=== PATIENT | female | born 1935 | race Caucasian/White ===

== ENCOUNTER → 2020-11-11 14:37 | Outpatient (CLI) | payer MEDICARE, BC, SELFPAY ==
--- NOTE | ~2020-11-11 | XR_ITS ---
EXAMINATION: XR shoulder LT min 2V DATE: 11/11/2020 14:57 INDICATION: Left shoulder pain. TECHNIQUE: 4 views of left shoulder were obtained. COMPARISON: None. FINDINGS: Bone alignment is normal. No fracture. There is mild osteoarthritis of glenohumeral joint a nd severe osteoarthritis of acromioclavicular joint. IMPRESSION: 1. Polyarticular osteoarthritis. Reviewed, dictated and finalized at location A.
== END ==
PROVIDERS: PCP Surgery; Visit Provider Physician Assistant
DX: M19.012 Primary osteoarthritis, left shoulder (principal)
CPT/HCPCS: 73030

== ENCOUNTER → 2022-01-30 09:13 | Outpatient (CLI) | payer MEDICARE, BC, SELFPAY ==
--- NOTE | ~2022-01-30 | CT_ITS ---
EXAMINATION: CT IAC/mastoids BI wo con DATE: 01/30/2022 09:30 INDICATION: Sudden left-sided hearing loss. TECHNIQUE: Computed tomography (CT) of the temporal bones was performed without intravenous contrast. Automated exposure control and iterative reconstruction technique were employed. The dose-length pro duct was 187.61 mGy-cm. COMPARISON: Neck CTA 06/24/2009 FINDINGS: There are likely changes of ocular lens replacement surgeries. RIGHT TEMPORAL BONE: The internal auditory canal, cochlea, vestibule, semicircular canals, vestibular aqueduct, jugular bu lb, carotid canal, facial nerve course, Prussak space, scutum, tympanic membrane, and external audito ry canal are normal. There is a trace right mastoid effusion. LEFT TEMPORAL BONE: The internal auditory canal, cochlea, vestibule, semicircular canals, vestibular aqueduct, carotid ca nal, jugular bulb, facial nerve course, ossicles, Prussak space, and scutum are normal. There is a sm all left mastoid effusion. There is a large volume of material in left external auditory canal with e rosions of bone. There is dehiscence of the anterior wall of the external auditory canal with communi cation with the temporomandibular joint. There is asymmetric severe osteoarthritis of left temporoman dibular joint. IMPRESSION: 1. Large volume of material in left external auditory canal with erosions of bone, consistent with ot itis externa. 2. 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 Reviewed, dictated and finalized at location A. NEYMAN CARPENTER IMPRESSION: 1. Large volume of material in left external auditory canal with erosions of cira ne, consistent with otitis externa. 2. 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
== END ==
PROVIDERS: PCP Family Medicine; Visit Provider Otolaryngology
DX: H91.23 Sudden idiopathic hearing loss, bilateral (principal)
CPT/HCPCS: 70480

== ENCOUNTER 2022-03-11 17:42 | Emergency (ER) | payer MEDICARE, BC, SELFPAY ==
--- NOTE | ~2022-03-11 | XR_ITS ---
EXAMINATION: XR chest 2V DATE: 03/11/2022 20:29 INDICATION: Back pain TECHNIQUE: PA and lateral views of the chest are obtained. COMPARISON: None available FINDINGS: The lungs are free of acute opacities. No pleural effusion or pneumothorax. The cardiomedia stinal silhouette is normal. There is moderate thoracic spondylosis. There is an age-indeterminate co mpression fracture of the T9 vertebral body with 25% loss of anterior vertebral body height. Deformit y of the left breast is consistent with history of lumpectomy. IMPRESSION: 1. No acute cardiopulmonary abnormality. Reviewed, dictated and finalized at location F. BLENDER
--- NOTE | ~2022-03-11 | CT_ITS ---
EXAMINATION: CT cervical spine wo con DATE: 03/11/2022 20:25 INDICATION: Neck pain TECHNIQUE: Computed tomography (CT) of the cervical spine was performed without intravenous contrast. The dose-length product (DLP) was 144.00 mGy-cm. Automated exposure control and iterative reconstruc tion technique were employed. COMPARISON: 06/24/2009 FINDINGS: There is chronic fusion of the C4 and C5 vertebral bodies. There is also chronic and severe loss of intervertebral disc space height at C3-4 and C5-6 and C6-7. The odontoid is intact. No fract ure is identified. There are 2 mm of chronic retrolisthesis of C5 on C6 and C6 on C7. There is multil evel severe facet and uncovertebral joint osteoarthritis. There are 15 degrees cervical levoscoliosis . There is mild central canal stenosis at C2-3, C3-4, and C6-7 and moderate central canal stenosis at C5-6. There is multinodular goiter of the left thyroid. IMPRESSION: 1. Severe cervical spondylosis without acute findings or significant interval change. Reviewed, dictated and finalized at location F. TESTER IMPRESSION: 1. Severe cervical spondylosis without acute findings or significant interval c kory.
[2022-03-11 18:41] VITALS: BP 143/60; PULSE 101; RESP 16; TEMP 36.2; O2SAT 98
--- NOTE | 2022-03-11 19:56 | ED.GENADULT ---
HPI - General Adult General Chief complaint: Unspecified Stated complaint: neck pain Time Seen by Provider: 03/11/22 19:55 Source: patient and family Mode of arrival: ambulatory History of Present Illness HPI narrative: 86 years old white female came from home by private car complaining of intermittent right-sided neck pain, discomfort, sometimes radiating to the supraclavicular area. Pain worse with certain position mainly if she lay down on the left side of her body. Pain gets better with certain position and when she turn her head to certain direction. She denies any fever, chills, nausea, vomiting, chest pain, shortness of breath, headache. Patient denies any recent new physical activities or trauma also denies any tingling, numbness, weakness of the upper extremities. Currently patient denying any symptoms. Related Data Home Medications Medication Instructions Recorded Confirmed aspirin 81 mg tablet,delayed 81 mg PO DAILY 02/13/19 02/17/22 release cholecalciferol (vitamin D3) 50 2,000 unit PO DAILY 02/13/19 02/17/22 mcg (2,000 unit) tablet potassium 99 mg tablet mg PO 02/13/19 02/17/22 ferrous sulfate 325 mg (65 mg 325 mg PO DAILY 08/31/19 02/17/22 iron) tablet Allergies Allergy/AdvReac Type Severity Reaction Status Date / Time hydrochlorothiazide Allergy Unknown unk Verified 03/11/22 17:45 pravastatin Allergy Unknown unk Verified 03/11/22 17:45 tamoxifen Allergy Unknown unk Verified 03/11/22 17:45 Review of Systems Review of Systems: All systems reviewed & are unremarkable except as noted in HPI and below PMFSH Past Medical History Medical History Diverticulosis H/O TIA (transient ischemic attack) and stroke History of left breast cancer Internal hemorrhoids Family History Family History Father Family history of coronary artery disease Social History Social History Smoking packs per day: 0.75 Smoking cigarettes per day: 15.0 Years smoked: 60 Smoking pack-years: 45.00 Smoking status: Current every day smoker Tobacco type: cigarettes Second hand tobacco smoke exposure: Yes Alcohol intake: never Substance use: never Gender identity (if verbalized by the patient): Female Sexual Orientation (if Verbalized by the Patient): Straight or Heterosexual Exam Narrative: General appearance: Well-developed, well-nourished Skin: Normal color Head: Normocephalic, nontraumatic Eyes: Clear conjunctiva ENT: Oropharynx normal, ears normal, nose normal Neck: Supple, nontender, no bruises, no swelling, no mass, no lymphadenopathy, no localized tenderness, good range of motion of the neck and right shoulder. Chest and respiratory: Airway patent, no respiratory distress, no accessory muscle use Heart: Regular rate/rhythm Abdomen: Soft, nontender, no organomegaly, quiet bowel sounds Vascular: Normal peripheral pulses, normal capillary refill. Musculoskeletal: Normal range of motion, nontender back Neurologic: Alert and oriented ?3, DERMATOLOGY PHYSICIAN ASSISTANT is normal as tested, no gross motor deficit Course Course Emergency Course: Musculoskeletal pain is my concern. Vital Signs Vital signs: Vital Signs Temperature 36.2 C L 03/11/22 18:41 Pulse Rate 101 H 03/11/22 18:41 Respiratory Rate 16 03/11/22 18:41 Blood Pressure 143/60 H 03/11/22 18:41 Pulse Oximetry 98 03/11/22 18:41 Oxygen Delivery Room Air 03/11/22 18:41 Temperature 36.2 C L 03/11/22 18:41 Pulse Rate 101 H 03/11/22 18:41 Respiratory Rate 16 03/11/22 18:41 Blood Pressure 143/60 H 1
[2022-03-11 21:29] VITALS: PULSE 103; RESP 16; O2SAT 97
== END 2022-03-11 21:30 | disposition home or self-care (01) ==
PROVIDERS: Emergency Provider Emergency Medicine; PCP Family Medicine
DX: M54.2 Cervicalgia (principal); Z86.73 Personal history of transient ischemic attack (TIA), and cerebral infarction without residual deficits; Z85.3 Personal history of malignant neoplasm of breast; F17.210 Nicotine dependence, cigarettes, uncomplicated; Z79.82 Long term (current) use of aspirin; M47.812 Spondylosis without myelopathy or radiculopathy, cervical region
CPT/HCPCS: 71046; 72125; 99284

== ENCOUNTER 2022-03-24 12:23 | Inpatient (IN) | payer MEDICARE, BC, SELFPAY ==
[2022-03-24] VITALS (64 sets, daily range): BP systolic 82–153; BP diastolic 42–97; PULSE 52–126; RESP 14–36; TEMP 36.4–36.9; O2SAT 90–100; BMI 21.5
--- NOTE | ~2022-03-24 | NM_ITS ---
EXAMINATION: NM terra stress w perfusion DATE: 03/26/2022 15:02 INDICATION: Non-ST elevation myocardial infarction. TECHNIQUE: Rest images were obtained following intravenous administration of 9 mCi Tc99m tetrofosmin (Myoview). The patient was infused intravenously with Lexiscan (regadenoson). Then, 28.3 mCi Tc99m te trofosmin (Myoview) was administered intravenously, and stress images were obtained. Data was reconst ructed into short axis and horizontal and vertical long axis SPECT images. Gated SPECT images were al so obtained. COMPARISON: CT abdomen and pelvis 06/14/2017 FINDINGS: There is a small, mild, reversible perfusion defect involving apical inferior and mid infer oseptal segments of left ventricle, consistent with ischemia. There is a small, severe, fixed perfusi on defect involving mid to basal inferior segments of left ventricle, consistent with infarct. There is no segmental wall motion abnormality. Left ventricular ejection fraction measures 60%. IMPRESSION: 1. Small area of mild ischemia involving apical inferior and mid inferoseptal segments of left ventri neris. 2. Small area of severe infarct involving mid to basal inferior segments of left ventricle. 3. Normal left ventricular ejection fraction measuring 60%. Reviewed, dictated and finalized at location A. OR MECHANICAL DEVELOPMENT ENGINEER IMPRESSION: 1. Small area of mild ischemia involving apical inferior and mid inferoseptal s egments of left ventricle. 2. Small area of severe infarct involving mid to basal inferior segments of lef t ventricle. 3. Normal left ventricular ejection fraction measuring 60%.
--- NOTE | ~2022-03-24 | CT_ITS ---
EXAMINATION: CTA brain carotid DATE: 03/25/2022 09:38 INDICATION: Syncope. Carotid bruit. TECHNIQUE: Computed tomographic angiography (CTA) of the head was performed without and with 100 mL O mnipaque-350 intravenous contrast. CTA of the neck was performed with intravenous contrast. Automated exposure control and iterative reconstruction technique were employed. The dose-length product was 1 714.76 mGy-cm. Maximum intensity projection and volume rendered 3D-reconstructions were created by james goode technologist on a separate workstation. COMPARISON: CTA neck 06/24/2009 FINDINGS: HEAD CTA: There are scattered areas of low attenuation in the cerebral white matter. There is no intr acranial hemorrhage, acute infarction, or abnormal intracranial mass lesion. The ventricles are emily l in size. There are likely changes of ocular lens replacement surgeries. There is mild mucosal thick ening in the ethmoid sinuses. There is a trace left mastoid effusion. The vertebral arteries are codo minant. There is focal moderate stenosis of distal right vertebral artery. There is no significant st enosis of basilar artery or the posterior cerebral arteries. There is no significant stenosis of the intracranial internal carotid arteries. There is a 6 x 3 mm saccular aneurysm of right supraclinoid i nternal carotid artery. There is moderate stenosis of intracranial left internal carotid artery. Ther e is no significant stenosis of the anterior or middle cerebral arteries. Anterior communicating jessica ry is normal. The posterior communicating arteries are normal. NECK CTA: There are small bilateral pleural effusions. There is mild emphysema. There is mild scarrin g at the lung apices. There are nodules in the thyroid measuring up to 11 mm, likely not clinically s ignificant. There are no pathologically enlarged lymph nodes. There is focal moderate stenosis of pro ximal right vertebral artery. There is plaque in the proximal internal carotid arteries. There is 65% stenosis of the proximal right internal carotid artery relative to normal distal artery lumen diamet er (NASCET criteria). There is 37% stenosis of the proximal left internal carotid artery relative to normal distal artery lumen diameter. There is mild stenosis of proximal left subclavian artery. There is severe cervical spondylosis. There is developmental anterior and posterior fusion at C4-C5. IMPRESSION: 1. Extensive nonspecific cerebral white matter disease, which likely represents chronic small vessel ischemic disease. 2. Focal moderate stenosis of proximal and distal right vertebral artery. Moderate stenosis of intrac ranial left internal carotid artery. 3. 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 4. 65% stenosis of the proximal right internal carotid artery relative to normal distal artery lumen diameter (NASCET criteria). 5. 37% stenosis of the proximal left internal carotid artery relative to normal distal artery lumen d iameter. 6. Mild emphysema. 7. Small pleural effusions. Reviewed, dictated and finalized at location A. GAGE COORDINATOR IMPRESSION: 1. Extensive nonspecific cerebral white matter disease, which likely represents chronic small vessel ischemic disease. 2. Focal moderate stenosis of proximal and distal right vertebral artery. Moder ate stenosis of intracranial left internal carotid artery. 3. 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 4. 65% stenosis of the proximal right internal carotid artery relative to emily l distal artery lumen diameter (NASCET criteria). 5. 37% stenosis of the proximal left internal carotid artery relative to normal distal artery lumen diameter. 6. Mild emphysema. 7. Small pleural effusions.
--- NOTE | 2022-03-24 12:27 | ECG_ITS ---
Measurements Intervals [place] Rate: 83 P: 51 WV: 132 QRS: 65 QRSD: 102 T: -46 QT: 417 QTc: 492 Interpretive Statements SINUS RHYTHM INCOMPLETE RIGHT BUNDLE BRANCH BLOCK ST-T WAVE ABNORMALITY IN ANT/INF LEADS- CONSIDER ISCHEMIA BASELINE WANDER- II, III ABNORMAL ECG NO PREVIOUS ECG AVAILABLE FOR COMPARISON Electronically Signed On 03-24-2022 12:51:54 COSMETIC ACCOUNT COORDINATOR by Leon Ventura D.O.
[2022-03-24 12:41] LABS: Glucose Point of Care 154 mg/dl (65-105)
--- NOTE | 2022-03-24 12:47 | PC.NURSE ---
Dr. Dugan at bedside to assess pt.
[2022-03-24] MEDS: SODIUM CHLORIDE 0.9% IV 1,000 ML 999 ML IV CONT (12:49)
--- NOTE | 2022-03-24 12:52 | ED.GENADULT ---
HPI - General Adult General Chief complaint: Syncope Stated complaint: seizure Time Seen by Provider: 03/24/22 12:26 History of Present Illness HPI narrative: 86-year-old female presented to the emergency department for evaluation of multiple syncopal episodes at her primary care physician's office. Patient was seen in the emergency [place] on 03/11 for what was thought to be arthritic pain. Patient was having follow-up with her primary care physician office today and in the office had 2 syncopal episodes. Patient states she has been eating and drinking well and has been taking her medications as directed. Patient states that she has been having issues with constipation. While she was at the office after being weighed she bent over to pick something up and had a syncopal episode lasting about 10 seconds. Primary care office states that she had no postictal episode and the episode only lasted just a few seconds. Later the patient was in the room and stated that she felt like she was going to pass out and had a subsequent second syncopal episode with associated hypotension. Upon arrival to the emergency room by EMS patient denies any complaints at this time other than some lower abdominal cramping. At the doctor's office patient did have a single episode of nausea and vomiting but denies any current nausea. I did discuss case with be practitioner who saw the patient at the primary care physician's office. Related Data Home Medications Medication Instructions Recorded Confirmed aspirin 81 mg tablet,delayed 324 mg PO DAILY 02/13/19 03/24/22 release cholecalciferol (vitamin D3) 50 2,000 unit PO DAILY 02/13/19 03/24/22 mcg (2,000 unit) tablet potassium 99 mg tablet 200 mg PO DAILY 02/13/19 03/24/22 ferrous sulfate 325 mg (65 mg 325 mg PO DAILY 08/31/19 03/24/22 iron) tablet quinapril 40 mg tablet 40 mg PO DAILY 03/24/22 03/24/22 Allergies Allergy/AdvReac Type Severity Reaction Status Date / Time hydrochlorothiazide Allergy Unknown unk Verified 03/24/22 11:42 pravastatin Allergy Unknown unk Verified 03/24/22 11:42 tamoxifen Allergy Unknown unk Verified 03/24/22 11:42 Review of Systems Review of Systems: CONSTITUTIONAL: Near syncope EYES: Denies visual changes, redness, or discharge. ENT: Denies rhinorrhea, congestion, sore throat, or otalgia. CARDIOVASCULAR: Denies chest pain, palpitations, or edema. RESPIRATORY: Denies cough or dyspnea. GASTROINTESTINAL: Denies abdominal pain, nausea, vomiting, or diarrhea. GENITOURINARY: Denies dysuria or hematuria. SKIN: Denies rash or itching. MUSCULOSKELETAL: Denies back pain, joint pain, or myalgia. NEUROLOGIC: Near syncope COUNTS INCLUDE 234 BEDS AT THE [facility] Past Medical History Medical History Diverticulosis H/O TIA (transient ischemic attack) and stroke History of left breast cancer Internal hemorrhoids Family History Family History (Updated 03/24/22 @ 20:24 by Ronit Kirkpatrick RN) Father Family history of coronary artery disease Other Alcohol abuse Social History Social History Smoking packs per day: 0.75 Smoking cigarettes per day: 15.0 Years smoked: 60 Smoking pack-years: 45.00 Smoking status: Current every day smoker Tobacco type: cigarettes Second hand tobacco smoke exposure: Yes Alcohol intake: never Substance use: never Lack of Transportation: No Lack of Food: Never True Current Housing: I Have Housing Concerned About Future Housing: No Difficulty Paying Gas/Electric Bills: No Difficulty Paying for Meds: No Currently Unemployed: No Education: Decline to Answer Difficulty w/ Childcare or Family Care: No Gender identity (if verbalized by the patient): Female Sexual Orientation (if Verbalized by the Patient): Straight or Heterosexual Spiritual care concerns: No Exam Narrative: APPEARANCE: Well appearing, no pain, no distress, well-no
[2022-03-24 12:53] LABS: Basophils Absolute Auto 0.1 K/mm3 (0.0-0.1); Basophils Percent Auto 1.1 % (0.2-1.2); Eosinophils Absolute Auto 0.1 K/mm3 (0-0.3); Eosinophils Percent Auto 0.9 % (0-4.4); Hematocrit 27.5 % (37.0-47.0); Hemoglobin 8.7 g/dL (12.0-15.0); Immature Granulocyte Absolute 0.06 K/mm3 (0.00-0.031); Immature Granulocyte Percent A 0.6 % (0-0.5); Lymphocytes Percent Auto 13.6 % (18.3-44.2); Mean Corpuscular HGB Conc 31.6 g/dl (32-36); Mean Corpuscular Hemoglobin 30.1 pg (26-34); Mean Corpuscular Volume 95.2 fl (80-100); Mean Platelet Volume 8.8 fl (7.4-10.4); Monocytes Absolute Auto 0.5 K/mm3 (0.1-0.6); Monocytes Percent Auto 5.3 % (2.6-8.5); Neutrophils Absolute Auto 8.1 K/mm3 (1.3-6.7); Neutrophils Percent Auto 78.5 % (45.5-73.1); Platelet Count Result 339 k/mm3 (150-375); Red Blood Count 2.89 M/mm3 (4.2-5.4); Red Cell Distribution Width 13.8 % (11.5-14.5); White Blood Count 10.3 K/mm3 (4.5-10.0)
[2022-03-24 13:00] LABS: Alanine Aminotransferase 14 U/L (6-35); Albumin Level 3.2 g/dL (3.5-5.1); Alkaline Phosphatase 76 U/L (38-126); Anion Gap 4 mmol/L (8-16); Aspartate Amino Transferase 22 U/L (14-36); Bilirubin,Total 0.7 mg/dL (0.2-1.3); Blood Urea Nitrogen 11 mg/dL (7-17); Carbon Dioxide 25 mmol/L (22-30); Chloride 106 mmol/L (98-107); Estimated CRCL calculation 32 ml/min; Estimated Glomerular Filt Rate 53; Glucose 171 mg/dL (65-110); Magnesium 1.9 mg/dL (1.6-2.3); Potassium 3.6 mmol/L (3.4-5.0); Sodium 135 mmol/L (137-145)
[2022-03-24 13:04] LABS: INR 1.2; Partial Thromboplastin Time 21.4 SECONDS (22.3-36.8); Prothrombin Time 14.7 Seconds (11.1-14.7)
--- NOTE | 2022-03-24 13:35 | ECG_ITS ---
Measurements Intervals [place] Rate: 95 P: [place]: 0 QRS: 78 QRSD: 106 T: -62 QT: 403 QTc: 507 Interpretive Statements SINUS OR ECTOPIC ATRIAL RHYTHM FREQUENT ATRIAL PREMATURE COMPLEXES ST-T WAVE ABNORMALITY IN ANTEROLAT/INF LEADS- CONSIDER ISCHCEMIA BASELINE ARTIFACT- I, II, III, AVR ABNORMAL ECG COMPARED TO ECG 03/24/2022 12:34:36 SINUS OR ECTOPIC ATRIAL RHYTHM NOW PRESENT Electronically Signed On 03-24-2022 14:23:52 VENETIAN BLIND CLEANER by Leon Ventura D.O.
[2022-03-24] MEDS: SODIUM CHLORIDE 0.9% IV 1,000 ML 500 ML IV CONT (13:40)
[2022-03-24 14:05] LABS: Troponin I 0.023 ng/mL (0.000-0.034)
[2022-03-24 14:22] LABS: Influenza A QL RT-PCR Negative (Negative); Influenza B QL RT-PCR Negative (Negative); RSV RNA, RT-PCR Negative (Negative); SARS-CoV-2 RNA PCR Negative
[2022-03-24 15:26] LABS: Add Urine Microscopic? YES; Appearance Urine Clear (Clear); Bilirubin Urine Negative (Negative); Blood Urine 1+ (Negative); Color Urine Yellow (Yellow); Glucose Urine UA Negative (Negative); Ketones Urine Negative (Negative); Leukocyte Esterase Ur Negative LEU/UL (Negative); Nitrate Urine Negative (Negative); Protein Urine Negative (Negative); Urobilinogen Urine 0.2 mg/dL (<2.0)
[2022-03-24 15:33] LABS: Bacteria Urine Trace /hpf; Mucus Urine Rare /lpf; Squamous Epithelial Cell Urine Occasional /hpf (Few)
[2022-03-24 17:11] LABS: Troponin I 0.026 ng/mL (0.000-0.034)
--- NOTE | 2022-03-24 17:30 | PM.IMHP ---
H&P: HPI History of Present Illness Date/Time: 03/24/22 17:30 Chief Complaint: Syncopal episode. Narrative: This is a very pleasant 86-year-old female smoker with history of TIA, hypertension, anemia, paroxysmal atrial fibrillation, carotid stenosis, and breast cancer who presented to the emergency department via EMS from Dr. Nelson's office for evaluation after a syncopal episode. She was seen in the ED on 03/11/2022 with complaints of right neck and shoulder pain and imaging at that time showed severe cervical spondylosis without acute findings and she was given prescriptions for cyclobenzaprine and naproxen which seemed to help. She ran out of those prescriptions several days ago and her pain has returned. She had an appointment today with Dr. Nelson for follow-up and she reports feeling okay this morning. While sitting in the waiting room she once again developed a severe pain in the right shoulder radiating in to the right side of the neck (she has difficulties describing the pain) and shortly after the pain started she became sweaty, nauseated, and lightheaded. She was then called back and while getting weighed she started to feel very lightheaded and had a brief loss of consciousness followed by an episode of emesis. She had another similar episode while in the exam room and she was directed to the ED. At the time of my evaluation she feels just fine and is having no pain. She took her blood pressure medications this morning and denies that she could have accidentally taken extra. She denies recent change in medications and her weight has remained stable. She has not had any recent cold or flu symptoms. She also denies exertional chest pain, pleuritic pain, palpitations, and shortness of breath. She has not had any injuries or falls to suggest why she has been having neck and shoulder pain. She sees no pattern as to when her neck and shoulder hurt and denies that they are specifically related to movement or activity. She has not had any visual changes and denies jaw claudication. On arrival to the emergency department her blood pressure was in the 80s to 90 systolic on that has improved with IV fluids. Her heart rate since arrival has ranged anywhere between 52 and 117. Workup in the ED was significant for a drop in hemoglobin and hematocrit from baseline, and mild hyponatremia. EKG showed sinus rhythm with incomplete right bundle branch block and ST T-wave abnormalities in anterior inferior leads and her initial troponin was a bit elevated. She is being admitted in this setting for further evaluation. Review of Systems Review of Systems: Twelve systems were reviewed and are negative except for as per HPI. [facility]LY [facility] Past Medical History Medical History (Updated 03/25/22 @ 14:43 by Heavenly Bose PA-C) Diverticulosis Hyperlipidemia Hypertension Internal hemorrhoids Kidney stones Left breast cancer with T3 tumor, >5 cm in greatest dimension Paroxysmal atrial fibrillation Psoriasis Tobacco use Transient ischemic attack Surgical History Surgical History (Updated 03/25/22 @ 14:42 by Heavenly Bose PA-C) History of cataract extraction with lens replacement History of cystoscopy History of hysterectomy History of lumpectomy of left breast Family History Family History Father Family history of coronary artery disease Other Alcohol abuse Social History Social History (Updated 03/25/22 @ 14:43 by Heavenly Bose PA-C) Social History: , 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 Lives alone, one daughter. Surrogate medical decision maker: Esperanza Vargas, daughter. Code status: Full code. Smoking packs per day: 0.75 Smoking cigarettes per day: 15.0 Years smoked: 60 Smoking pack-years: 45.00 Smoking status: Current every day smoker Tobacco type: cigarettes Second hand tobacco smoke exposure: Yes Alcohol intake: never Substance use: never Lack of Transpo
--- NOTE | 2022-03-24 19:51 | ADMGEN ---
This patient, Ranjana Mg, was admitted to IMU Room 202-01 at 1951. Patient/family oriented to hospital policies and general routines including ID bracelet, bed and alarms, visiting hours, pain management, procedures, bathroom and other care routines, personal items, smoking policy, room service/diet, and visiting hours. Information on how to activate the Rapid Response Team has been discussed. Patient/Family are encouraged to report perceived risks to care and to ask questions if they do not understand what they are told or what they should do.
[2022-03-25] VITALS (17 sets, daily range): BP systolic 100–130; BP diastolic 52–72; PULSE 76–127; RESP 12–20; TEMP 36.4–37.1; O2SAT 93–98
--- NOTE | 2022-03-25 00:01 | ECHO_ITS ---
Patient Info Name: Ranjana Mg Age: 86 years : 1935 Gender: Female Ht: 64 in Wt: 125 lbs BSA: 1.60 m2 HR: 101 bpm BP: 128 / 56 mmHg Heart Rhythm: Sinus Rhythm, Tachycardia Technical Quality: Fair Exam Date: 03/25/2022 12:20 PM Exam Location: [facility] Pulmonary Exam Room: [facility] Patient Status: Inpatient Admit Date: 03/24/2022 Staff Ordering Physician: Heavenly Bose PA-C Slots Manager: Nicolasa Dunbar RDCS Attending Provider: Imelda Rodriguez DO Referring Physician: Juice GROSS; Exam Type: CA echo doppler color flow Study Info Indications - syncope Complete two-dimensional, color flow and Doppler transthoracic echocardiogram is performed. Summary 1. Complete two-dimensional, color flow and Doppler transthoracic echocardiogram is performed. 2. Left ventricular systolic function is normal, estimated at 50-55%. 3. The left ventricular diastolic function is grade I diastolic dysfunction. 4. Global longitudinal strain is abnormal at -12 %. 5. Right ventricular systolic function is normal. 6. Left atrial chamber dimension is mildly enlarged. 7. There is mild mitral valve regurgitation. 8. There is trace tricuspid valve regurgitation. Left Ventricle Left ventricular chamber dimension is normal. Left ventricular systolic function is normal, estimated at 50-55%. There is no increased left ventricular wall thickness. The left ventricular diastolic function is grade I diastolic dysfunction. Global longitudinal strain is abnormal at -12 %. Right Ventricle Right ventricular chamber dimension is normal. Right ventricular systolic function is normal. Left Atria Left atrial chamber dimension is mildly enlarged. Right Atria Right atrial chamber dimension is normal. Atrial Septum Intact interatrial septum visualized by color flow imaging. Aortic Valve The aortic valve is trileaflet. There is no aortic valve stenosis. There is no aortic valve regurgitation. Pulmonic Valve The pulmonic valve is not well visualized. Mitral Valve The mitral valve has thickened leaflets. There is mild mitral valve regurgitation. Tricuspid Valve The tricuspid valve leaflets are normal. There is trace tricuspid valve regurgitation. Pericardium/Pleural There is trivial pericardial effusion. Aorta The aortic root size at the sinus of Valsalva is normal. Left Ventricular Outflow Tract Name Value Normal LVOT 2D LVOT Diameter 2.0 cm LVOT Doppler LVOT Peak Gradient 4 mmHg LVOT Mean Gradient 2 mmHg LVOT VTI 20 cm LVOT VTI/AV VTI Ratio 1.0 LVOT Stroke Volume 64 ml LVOT CO 13.8 l/min LVOT CI 8.6 l/min/m2 Pulmonic Valve Name Value Normal PV Doppler
[2022-03-25 05:19] LABS: Hematocrit 26.8 % (37.0-47.0); Hemoglobin 8.3 g/dL (12.0-15.0); Mean Corpuscular Hemoglobin 29.3 pg (26-34); Mean Corpuscular Volume 94.7 fl (80-100); Mean Platelet Volume 8.8 fl (7.4-10.4); Platelet Count Result 267 k/mm3 (150-375); Red Blood Count 2.83 M/mm3 (4.2-5.4); Red Cell Distribution Width 13.8 % (11.5-14.5); White Blood Count 6.6 K/mm3 (4.5-10.0)
[2022-03-25 05:21] LABS: Alanine Aminotransferase 18 U/L (6-35); Albumin Level 2.8 g/dL (3.5-5.1); Alkaline Phosphatase 63 U/L (38-126); Anion Gap 2 mmol/L (8-16); Aspartate Amino Transferase 27 U/L (14-36); Bilirubin,Total 0.8 mg/dL (0.2-1.3); Blood Urea Nitrogen 9 mg/dL (7-17); Calcium 7.8 mg/dL (8.4-10.2); Carbon Dioxide 25 mmol/L (22-30); Chloride 111 mmol/L (98-107); Estimated CRCL calculation 45 ml/min; Estimated Glomerular Filt Rate > 60; Glucose 83 mg/dL (65-110); Magnesium 1.9 mg/dL (1.6-2.3); Potassium 3.8 mmol/L (3.4-5.0); Sodium 138 mmol/L (137-145)
[2022-03-25 05:43] LABS: Iron 35 ug/dL (37-170)
[2022-03-25 05:53] LABS: Percent Iron Saturation 13 % (20-50)
[2022-03-25] MEDS: FERROUS SULFATE 324 MG TABLET PO (09:10)
[2022-03-25] MEDS: CYCLOBENZAPRINE HCL 5 MG TABLET PO ×3 (09:10→17:06)
[2022-03-25] MEDS: ASPIRIN 81 MG ENTERIC TABLET 324 MG PO (09:10)
--- NOTE | 2022-03-25 09:15 | PM.CNCAR ---
Assessment and Plan Assessment and plan (1) Elevated troponin: Code(s): R77.8 - Other specified abnormalities of plasma proteins Status: Acute Assessment and Plan: Pt appears to have had a NSTEMI; unclear if this is an ACS event vs a trop elevation in the face of previously unrecognized CAD + physiologic stress (hypotension, PAF RVR, anemia). Anginal CP/arm pain began in the ER, not earlier in the day Does have (transient?) ischemic-appearing EKG changes Has been taking DAPT However now has an iron-def anemia, so not a great candidate for heparinization or cath/PCI which may obligate pt to DAPT. Will repeat EKG, check Echo and tx conservatively w/ BB, statins (but has some type of allergy to pravastatin), antiplatelet agents, SL TNG, unless pt has intractable sx. Eventual Lexiscan (2) Syncope: Code(s): R55 - Syncope and collapse Status: Acute Assessment and Plan: Syncope presumably 2nd low BP and orthostasis. Unclear if low BP was due to med or ischemia. Better after IV fluids Recheck orthostatics (3) Paroxysmal A-fib: Code(s): I48.0 - Paroxysmal atrial fibrillation Status: Acute Assessment and Plan: PAF W/ RVR noted. Tolerating it surprisingly well Add IV and po BB Consider AC or left atrial appendage occluder depending on anemia eval. (4) Anemia: Code(s): D64.9 - Anemia, unspecified Status: Acute Assessment and Plan: New iron-def anemia noted. Stool guaiacs History of Present Illness History of Present Illness Consult date/time: 03/25/22 09:15 Reason For Visit: Syncope,Paroxysmal A Fib,Chest Pain Narrative: Ranjana Mg is an 86 y.o. female whom I was asked to see at the request of Dr. Dugan for my advice and opinion regarding her chest pain, syncope and EKG changes, in consultation. Patient has a history of paroxysmal atrial fibrillation, hypertension, TIA, carotid stenosis, anemia and breast cancer. The pt had an ER visit for right posterior shoulder and neck pain 03/11/2022 and was given an Rx for naproxen and cyclobenzaprine which helped. She ran out and the pain came back; it hurts to move in certain ways. She was visiting DR. Nelson yesterday for this and felt lightheaded, sweaty and nauseated and had a syncopal episode lasting for 10 seconds. Later she felt like she was going to pass out and had a syncopal episode associated with hypotension. She was brought to the emergency room by EMS; her initial blood pressure was 78/42 with a pulse of 68. Her initial blood pressure in the emergency room was 98/47 and later 82/50 mmHg , and she was given IV fluids. Her heart rate was 82, NSR. Later she went into AFib and has been in AFib with heart rates ranging from 80-120s through the night. She was found to be orthostatic. In the ER she complained of some chest pain radiating to the arms and there was a question of EKG changes. The EKG was shown to Dr. Abreu and did not appear to be an acute STEMI. She has been doing well overnight. The pt is a very imprecise historian. She denies any h/o syncope or dizziness, and has been eating and drinking fine. She has been having some mild chest tightness off and on for a while w/o observable aggravating or relieving factors. The bilateral arm pain yesterday was new. She does not note any palps and wasn't aware of a dx of PAF. No melena or bleeding. Review of Systems Constitutional: Constitutional: Denies fever(s) Eyes: Eyes: Reports no additional eye complaints ENT: Denies epistaxis Cardiovascular: Cardiovascular: Reports chest pain (as per hx), Denies pedal edema, Reports lightheadedness (as per hx) and Denies dyspnea Respiratory: Respiratory: Denies chest congestion and Denies dyspnea Gastrointestinal: Gastrointestinal: Denies abdominal pain, Denies melena, Denies hematochezia, Reports nausea (yesterday) and Denies hematemesis Musculoskeletal: Musculoskeletal:
--- NOTE | 2022-03-25 12:36 | PM.IMPN ---
Progress Note: A&P Assessment and Plan (1) Syncope: Code(s): R55 - Syncope and collapse Status: Acute Assessment and Plan: Patient developed lightheadedness and brief loss of conscious well doctor's office follow-up on an episode of emesis. This was related to severe right shoulder/neck pain. She had low BP at this time that persisted when she was in the ED. She had a CTA of the head and neck which showed extensive nonspecific cerebral white matter disease but no acute infarct. She did moderate stenosis of the proximal and distal right vertebral artery as well as moderate stenosis of the intracranial left ICA. 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 No pathologically enlarged lymph nodes. Probabaly vasovagal associated with the pain and HoTN. Will follow on telemetry. (2) Hypotension: Code(s): I95.9 - Hypotension, unspecified Status: Acute Assessment and Plan: Patient has a history of hypertension is on quinapril and amlodipine at home. She had low blood pressure associated with the pain which could be vasovagal from pain. Consider also hypotension related to inferior ischemia. Blood pressure improved with IV fluids. Blood pressure has improved. Continue to monitor. (3) Pain in right shoulder: Code(s): M25.511 - Pain in right shoulder Status: Acute Assessment and Plan: Head and neck CTA as mentioned above cervical spine CT report was reviewed showing severe cervical spondylosis without acute findings or interval change from 2009. EKG showing significant ST T wave changes in anterior inferior leads. Troponin to 1.27. Consider anginal equivalent. Continue aspirin. Cardiology has been consulted. Echocardiogram has been ordered. Patient most likely will need ischemic evaluation prior to discharge. (4) Paroxysmal A-fib: Code(s): I48.0 - Paroxysmal atrial fibrillation Status: Acute Assessment and Plan: Patient developed atrial fibrillation overnight. TSH normal. Heart rate still elevated but improved. She has been started on Lopressor. Repeat EKG. Echo pending. [id number] = 7. Start anticoagulation if okay with cardiology. (5) Anemia: Code(s): D64.9 - Anemia, unspecified Status: Acute Assessment and Plan: Hemoglobin was normal in August. B12 level low end of normal so will replace. She is on ASA and Plavix. Iron studies noted and consistent with iron deficiency. She is on Naproxen prn so will add PPI treatment. Follow HH. Continue iron. Replace B12. (6) Tobacco use: Code(s): Z72.0 - Tobacco use Status: Acute Assessment and Plan: Patient was educated about the benefits of smoking cessation (7) Hyperglycemia: Code(s): R73.9 - Hyperglycemia, unspecified Status: Acute Assessment and Plan: Glucose 171 on admisison probably stress response. Repeat was normal. Last A1c 4.4 in August. (8) Neck pain on right side: Code(s): M54.2 - Cervicalgia Status: Acute Assessment and Plan: As above. Subjective Date/time seen: 03/25/22 12:36 Interval history: 86yo female here for right shoulder/neck and syncope. Feels well. No problems overnight. No CP. Still with right neck/shoulder pain that is constant. Nothing makes it better or worse. She seems unsure if worse with palpation to the area. Not worse with eating. No melana or hematochezia. No abd pain. Exam Narrative: AF 97.5 125/61 127 12 96% ra Gen - NARD Neck - no enlarged ant/post cervical LN. No enlarged axillary LN Chest - coarse expiratory rhonchi appreciated anteriorly. nml RR. CV - tachycardic, irregular. Tele showing AFib at times with 1 episode on NSVT x 6 beats Abd - Soft, NT/ND, Positive BS. No RUQ pain. Ext - No pedal edema. Psych - Nml mood and affect Skin - Warm and dry Objective Data Vital Signs Vital Signs: Vital Signs - 24 hr
[2022-03-25] MEDS: METOPROLOL TARTRATE 25 MG TABLET PO ×2 (12:38→21:22)
--- NOTE | 2022-03-25 13:07 | ECG_ITS ---
Measurements Intervals [place] Rate: 81 P: 53 IL: 173 QRS: 67 QRSD: 101 T: -16 QT: 436 QTc: 509 Interpretive Statements SINUS OR ECTOPIC ATRIAL RHYTHM BORDERLINE ST-T WAVE ABNORMALITY- ANTEROLAT/INF LEADS PROLONGED QT INTERVAL BASELINE WANDER- V1 ABNORMAL ECG COMPARED TO ECG 03/24/2022 13:45:48 [address]IN[address]M NOW PRESENT ST (T WAVE) DEVIATION IMPROVED PROLONGED QT INTERVAL NOW PRESENT Electronically Signed On 03-25-2022 14:47:22 [employer] by Leon Ventura D.O.
[2022-03-25] MEDS: PANTOPRAZOLE 40 MG TABLET PO ×2 (17:05→21:22)
[2022-03-25] MEDS: CYANOCOBALAMIN INJ 1,000 MCG/ML VIAL 1000 MCG IM (17:05)
[2022-03-26] VITALS (19 sets, daily range): BP systolic 97–138; BP diastolic 51–86; PULSE 73–97; RESP 16–20; TEMP 36.5–36.8; O2SAT 92–96
--- NOTE | 2022-03-26 00:42 | PC.NURSE ---
patient had iv tylenol to get every 6 hrs scheduled. patient refused the tylenol, she said she preferred the pills and was not having any pain at that time. called dr harris to change dose.
[2022-03-26 05:12] LABS: Basophils Absolute Auto 0.1 K/mm3 (0.0-0.1); Basophils Percent Auto 0.9 % (0.2-1.2); Eosinophils Absolute Auto 0.1 K/mm3 (0-0.3); Eosinophils Percent Auto 1.3 % (0-4.4); Hematocrit 28.4 % (37.0-47.0); Hemoglobin 8.8 g/dL (12.0-15.0); Immature Granulocyte Absolute 0.02 K/mm3 (0.00-0.031); Immature Granulocyte Percent A 0.2 % (0-0.5); Lymphocytes Absolute Auto 1.35 K/mm3 (0.9-3.2); Mean Corpuscular Hemoglobin 28.8 pg (26-34); Mean Corpuscular Volume 92.8 fl (80-100); Monocytes Absolute Auto 0.5 K/mm3 (0.1-0.6); Monocytes Percent Auto 6.1 % (2.6-8.5); Neutrophils Absolute Auto 6.4 K/mm3 (1.3-6.7); Neutrophils Percent Auto 75.5 % (45.5-73.1); Platelet Count Result 287 k/mm3 (150-375); Red Blood Count 3.06 M/mm3 (4.2-5.4); Red Cell Distribution Width 13.8 % (11.5-14.5); White Blood Count 8.5 K/mm3 (4.5-10.0)
[2022-03-26 05:29] LABS: Anion Gap 4 mmol/L (8-16); Blood Urea Nitrogen 9 mg/dL (7-17); Calcium 8.2 mg/dL (8.4-10.2); Carbon Dioxide 26 mmol/L (22-30); Chloride 109 mmol/L (98-107); Estimated CRCL calculation 39 ml/min; Estimated Glomerular Filt Rate > 60; Glucose 95 mg/dL (65-110); Magnesium 1.9 mg/dL (1.6-2.3); Potassium 3.7 mmol/L (3.4-5.0); Sodium 139 mmol/L (137-145)
--- NOTE | 2022-03-26 07:20 | WPDGICN ---
Assessment and Plan Assessment and plan (1) Paroxysmal atrial fibrillation: Code(s): I48.0 - Paroxysmal atrial fibrillation Status: Acute Assessment and Plan: She is being considered for anticoagulation. Given the fact that she has anemia and iron deficiency there is possibly gastrointestinal pathology which might increase her risk of bleeding if anticoagulated. (2) Anemia: Code(s): D64.9 - Anemia, unspecified Status: Acute Assessment and Plan: Her iron level is low at 35 and saturation is also low. I will schedule her for EGD and colonoscopy to be done tomorrow morning. Explain her that she could have something such as any symptomatic ulcer, colon polyps, AVMs or other issues that could potentially bleed if she is anticoagulated. (3) H/O TIA (transient ischemic attack) and stroke: Code(s): Z86.73 - Personal history of transient ischemic attack (TIA), and cerebral infarction without residual deficits Status: Chronic Assessment and Plan: Has been on aspirin and she thinks Plavix for most of the past 20 years. GI Consult Note Consult date/time: 03/26/22 07:20 HPI: Ranjana gM is a 86 year old female who was in her doctor's office regarding shoulder pain when she suddenly became sweaty and lightheaded apparently passed out. She has been found to have atrial fibrillation. She is chronically on aspirin and Plavix because she had a stroke or TIA about 20 years ago. She has not had gastrointestinal investigation since the colonoscopy was done about 15 years ago. She denies abdominal pain nausea or vomiting, change in appetite, dysphagia or heartburn. she denies seeing blood in her stools or having black tarry stools. She does not believe that she has ever had ulcer. Review of Systems Review of Systems: All systems reviewed & are unremarkable except as noted in HPI and below PMFSH Past Medical History Medical History Diverticulosis Hyperlipidemia Hypertension Internal hemorrhoids Kidney stones Left breast cancer with T3 tumor, >5 cm in greatest dimension Paroxysmal atrial fibrillation Psoriasis Tobacco use Transient ischemic attack Surgical History Surgical History History of cataract extraction with lens replacement History of cystoscopy History of hysterectomy History of lumpectomy of left breast Family History Family History Father Family history of coronary artery disease Other Alcohol abuse Social History Social History Social History: , 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 Lives alone, one daughter. Surrogate medical decision maker: Esperanza Vargas, daughter. Code status: Full code. Smoking packs per day: 0.75 Smoking cigarettes per day: 15.0 Years smoked: 60 Smoking pack-years: 45.00 Smoking status: Current every day smoker Tobacco type: cigarettes Second hand tobacco smoke exposure: Yes Alcohol intake: never Substance use: never Lack of Transportation: No Lack of Food: Never True Current Housing: I Have Housing Concerned About Future Housing: No Difficulty Paying Gas/Electric Bills: No Difficulty Paying for Meds: No Currently Unemployed: No Education: Decline to Answer Difficulty w/ Childcare or Family Care: No Spiritual care concerns: No Meds Home Medications and Allergies Home Medications Medication Instructions Recorded Confirmed Type aspirin 81 mg tablet,delayed 324 mg PO DAILY 02/13/19 03/24/22 History release cholecalciferol (vitamin D3) 50 2,000 unit PO DAILY 02/13/19 03/24/22 History mcg (2,000 unit) tablet potassium 99 mg tablet 200 mg PO DAILY 02/13/19 03/24/22 History ferrous sulfate 325 mg (65 mg 325 mg PO DAILY 08/31/19 03/24/22 History iron) tablet
[2022-03-26] MEDS: CYCLOBENZAPRINE HCL 5 MG TABLET PO ×3 (08:08→16:19)
[2022-03-26] MEDS: PANTOPRAZOLE 40 MG TABLET PO ×2 (08:08→20:49)
[2022-03-26] MEDS: METOPROLOL TARTRATE 25 MG TABLET PO ×2 (08:08→20:49)
[2022-03-26] MEDS: CYANOCOBALAMIN 1,000 MCG TABLET 1000 MCG PO (08:08)
[2022-03-26] MEDS: ASPIRIN 81 MG CHEWABLE TABLET PO (08:08)
[2022-03-26] MEDS: ACETAMINOPHEN 500 MG TABLET 1000 MG PO ×3 (08:21→22:26)
--- NOTE | 2022-03-26 11:47 | EST_ITS ---
Patient Info Name: Ranjana Mg Age: 86 years : 1935 Gender: Female Ht: 64 in Wt: 126 lbs BSA: 1.61 m2 HR: 82 bpm BP: 130 / 83 mmHg Heart Rhythm: Sinus Rhythm Exam Date: 03/26/2022 12:50 PM Exam Location: [facility] Stress Patient Status: Inpatient Admit Date: 03/24/2022 Staff Ordering Physician: Maegan Peacock MD Attending Provider: Imelda Rodriguez DO Exercise Technologist: Macey Kc CT Nurse: ANITA BASSETT Exam Type: CA stress terra w NM Study Info Indications 121.4 - NON STEMI A regadenoson stress test was performed. Summary 1. Marked ST segment depression with adenosine infusion consistent with ischemia. 2. No chest or arm discomfort during adenosine infusion. 3. Nuclear test results to follow. Protocol: Lexiscan Stress ECG Details Stage: REST Duration (min): 0 min : 54 sec HR (bpm): 82 SBP (mmHg): 130 DBP (mmHg): 83 Stage: REST Duration (min): 1 min : 12 sec HR (bpm): 82 SBP (mmHg): 130 DBP (mmHg): 83 Stage: REST Duration (min): 7 min : 3 sec HR (bpm): 79 SBP (mmHg): 130 DBP (mmHg): 83 Stage: STAGE 1 Duration (min): 1 min : 0 sec HR (bpm): 97 SBP (mmHg): 140 DBP (mmHg): 79 Stage: RECOVERY Duration (min): 1 min : 0 sec HR (bpm): 92 SBP (mmHg): 140 DBP (mmHg): 79 Stage: RECOVERY Duration (min): 2 min : 0 sec HR (bpm): 91 SBP (mmHg): 140 DBP (mmHg): 79 Stage: RECOVERY Duration (min): 3 min : 0 sec HR (bpm): 90 SBP (mmHg): 159 DBP (mmHg): 78 Stage: RECOVERY Duration (min): 4 min : 0 sec HR (bpm): 86 SBP (mmHg): 159 DBP (mmHg): 78 Stage: RECOVERY Duration (min): 5 min : 0 sec HR (bpm): 89 SBP (mmHg): 126 DBP (mmHg): 73 Stage: RECOVERY Duration (min): 6 min : 0 sec HR (bpm): 88 SBP (mmHg): 126 DBP (mmHg): 73 Stage: RECOVERY Duration (min): 7 min : 0 sec HR (bpm): 87 SBP (mmHg): 114 DBP (mmHg): 71 Stage: RECOVERY Duration (min): 8 min : 0 sec HR (bpm): 82 SBP (mmHg): 114 DBP (mmHg): 71 Stage: RECOVERY Duration (min): 9 min : 0 sec HR (bpm): 86 SBP (mmHg): 121 DBP (mmHg): 70 Stage: RECOVERY Duration (min): 10 min : 0 sec HR (bpm): 87 SBP (mmHg): 121 DBP (mmHg): 70 Stage: RECOVERY Duration (min): 11 min : 0 sec HR (bpm): 85 SBP (mmHg): 137 DBP (mmHg): 71 Stage: RECOVERY Duration (min): 12 min : 0 sec HR (bpm): 82 SBP (mmHg): 137 DBP (mmHg): 71 Stage: RECOVERY Duration (min): 13 min : 0 sec HR (bpm): 86 SBP (mmHg): 124 DBP (mmHg): 64 Stage: RECOVERY Duration (min): 14 min : 0 sec HR (bpm): 85 SBP (mmHg): 124 DBP (mmHg): 64
[2022-03-26] MEDS: BISACODYL 5 MG TABLET EC 10 MG PO ×3 (14:21→20:47)
--- NOTE | 2022-03-26 14:50 | PM.PNCARD ---
Progress Note: A&P Assessment and Plan (1) Elevated troponin: Code(s): R77.8 - Other specified abnormalities of plasma proteins Status: Acute Assessment and Plan: Pt appears to have had a NSTEMI; unclear if this is an ACS event vs a trop elevation in the face of previously unrecognized CAD + physiologic stress (hypotension, PAF RVR, anemia). Anginal CP/arm pain began in the ER Did havet ransient ischemic-appearing EKG changes Has been taking DAPT However now has an iron-def anemia, so not a great candidate for heparinization or cath/PCI which may obligate pt to long-term DAPT. Does have underlying CAD. Echo however showed nml fxn. Lexiscan shows a small area of ischemia. At risk for future CV events. However at risk for bleeding if we proceed w/ PCI also. Since there is only a small area of ischemia, will cont to pursue medical tx. Reviewed complex situation w/ pt and daughter, competing risks of bleeding/anemiaif we proceed w/ AC and/or PCI, and potential prob w/ recurrent cardiac issues, stroke etc. Cont med tx for now: ASA, BB. Add statin per guidelines since pt can not recall any allergy to statins. (2) Syncope: Code(s): R55 - Syncope and collapse Status: Acute Assessment and Plan: Syncope presumably 2nd low BP and orthostasis. Unclear if low BP was due to meds or ischemia. Better after IV fluids Not orthostatic today (3) Paroxysmal A-fib: Code(s): I48.0 - Paroxysmal atrial fibrillation Status: Acute Assessment and Plan: PAF W/ RVR noted. Tolerated it surprisingly well Added po BB and remaining in NSR Consider AC with close FU of H&H after endoscopy, or left atrial appendage occluder, depending on anemia eval. (4) Anemia: Code(s): D64.9 - Anemia, unspecified Status: Acute Assessment and Plan: New iron-def anemia noted. Stool guaiacs Endoscopy tmr Plan I spent 42 minutes reviewing pt data, examining pt, discussion w/ pt and daughter, etc. Subjective Date/time seen: Patient admitted with syncope at Dr. Nelson's office. Was found to be hypotensive and brought to the emergency room. She had anterior chest pain /tightness radiating to her arms in the emergency room. Later was found have a non-STEMI with troponins going up to 6. EKG showed transient ST depression. She has been on DAPT due to her CVD; her aspirin has been held since she was found to have new iron deficiency anemia. Also has history of paroxysmal atrial fibrillation, hypertension, TIA, carotid stenosis. 03/25/2022: Assessed that the patient had elevated troponins, unclear if due to an ACS event/NSTEMI or due to physiologic stressors of hypotension and AFib RVR. Echo showed EF 50-55% with no segmental wall motion abnormalities. 03/26/22 14:50: Doing well today, steady on her feet going which she the bathroom, no further chest or arm discomfort. Still has the right posterior shoulder/ neck pain which is positional and improved with Tylenol. Although pravastatin is listed as an allergy, the patient cannot recall having any allergy to that medication R knee severe reactions to any medication. Lexiscan: Small area of mild ischemia apical inferior and mid inferior septal segments, small area of severe infarct inferior segment, EF 60%. Telemetry: Has remained in sinus rhythm for the past 24 hours Review of Systems Review of Systems: she no chest pain, shortness of breath, dizziness, arm pain. Still has an were trying posterior neck and shoulder pain Exam Const: General: cooperative, healthy appearing and comfortable; No confusion Orientation/consciousness: oriented to person, patient oriented x3 and No confusion Other: daughter Esperanza at bedside HENMT: Mouth: Yes moist mucous membranes Eyes: General: appearance normal, both eyes and all related structures Neck: Neck: supple and no JVD Thyroid: thyroid normal Resp: Effort & Inspectio
[2022-03-26] MEDS: polyethylene glycoL 3350 238 GM BOTTLE PO (16:18)
--- NOTE | 2022-03-26 17:57 | PM.IMPN ---
Progress Note: A&P Assessment and Plan (1) Syncope: Code(s): R55 - Syncope and collapse Status: Acute Assessment and Plan: Patient developed lightheadedness and brief loss of conscious when in the doctor's office following an episode of emesis. This was related to severe right shoulder/neck pain. She had low BP at this time that persisted when she was in the ED. She had a CTA of the head and neck which showed extensive nonspecific cerebral white matter disease but no acute infarct. She did have moderate stenosis of the proximal and distal right vertebral artery as well as moderate stenosis of the intracranial left ICA. 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 No pathologically enlarged lymph nodes. Probably vasovagal associated with the pain and HoTN. Not on statin due to allergy. Continue to follow on telemetry. Add Zetia (2) Non-ST elevation PA (NSTEMI): Code(s): I21.4 - Non-ST elevation (NSTEMI) myocardial infarction Status: Acute Assessment and Plan: Troponin to 6.72. EKG showing NSR wiht iRBBB and anterior/inferior ST-T wave changes. The right shoulder and neck pain probably musculoskeletal but patient was having vague chest tightness and arm pain which is probably the anginal equivalent. Could be associated with the hypotension and a syncopal episode prior to admission. Patient was on aspirin and Plavix prior to admission. Continue aspirin. Cardiology was consulted. Appreciate their input. Echocardiogram showing EF of 50-55% with grade 1 diastolic dysfunction and no wall motion abnormalities. EKG stress portion is pending but the Lexiscan nuclear medicine images shows small area of mild ischemia involving the apical inferior and mid inferior septal segments of the left ventricle. She also has a small area of severe infarct involving the mid to basal inferior segment of the left ventricle. It was decided not to proceed with heart catheterization given the fact that she has a new onset iron deficiency anemia of unclear etiology. Continue medical management. Control risk factors. She has been educated about the benefits of smoking cessation. (3) Hypotension: Code(s): I95.9 - Hypotension, unspecified Status: Acute Assessment and Plan: Patient has a history of hypertension and is on quinapril and amlodipine at home. She had low blood pressure associated with the pain which could be vasovagal from pain. Consider also hypotension related to inferior ischemia. Blood pressure improved with IV fluids. Blood pressure stable. Metoprolol started and she is toelrating. Continue to monitor. (4) Paroxysmal A-fib: Code(s): I48.0 - Paroxysmal atrial fibrillation Status: Acute Assessment and Plan: Patient developed atrial fibrillation here. TSH normal. Heart rate improved and back in NSR. BP remaining stable on Lopressor. Continue Lopressor. Echo as above. [id number] = 7. Start anticoagulation after GI evaluation complete if able. (5) Anemia: Code(s): D64.9 - Anemia, unspecified Status: Acute Assessment and Plan: Hemoglobin was normal in August. B12 level low end of normal so will replace. She is on ASA and Plavix. Iron studies noted and consistent with iron deficiency. She is on Naproxen prn so we added PPI treatment. GI consult with plans for endoscopy in the morning. (6) Tobacco use: Code(s): Z72.0 - Tobacco use Status: Acute Assessment and Plan: Patient was educated about the benefits of smoking cessation (7) Hyperglycemia: Code(s): R73.9 - Hyperglycemia, unspecified Status: Acute Assessment and Plan: Glucose 171 on admisison probably stress response. Repeat was normal. Last A1c 4.4 in August. (8) Neck pain on right side: Code(s): M54.2 - Cervicalgia Status: Acute Assessment and Plan: As above. (9) Pain in righ
[2022-03-27] VITALS (20 sets, daily range): BP systolic 105–139; BP diastolic 40–76; PULSE 69–93; RESP 16–22; TEMP 35.9–36.6; O2SAT 94–99
[2022-03-27 05:14] LABS: Hematocrit 28.3 % (37.0-47.0); Hemoglobin 9.1 g/dL (12.0-15.0); Mean Corpuscular HGB Conc 32.2 g/dl (32-36); Mean Corpuscular Hemoglobin 29.2 pg (26-34); Mean Corpuscular Volume 90.7 fl (80-100); Platelet Count Result 259 k/mm3 (150-375); Red Blood Count 3.12 M/mm3 (4.2-5.4); Red Cell Distribution Width 13.8 % (11.5-14.5); White Blood Count 6.8 K/mm3 (4.5-10.0)
[2022-03-27 05:43] LABS: Anion Gap 4 mmol/L (8-16); Blood Urea Nitrogen 7 mg/dL (7-17); Calcium 8.3 mg/dL (8.4-10.2); Carbon Dioxide 27 mmol/L (22-30); Chloride 105 mmol/L (98-107); Estimated CRCL calculation 35 ml/min; Estimated Glomerular Filt Rate 60; Glucose 99 mg/dL (65-110); Potassium 3.4 mmol/L (3.4-5.0); Sodium 136 mmol/L (137-145)
[2022-03-27] MEDS: ASPIRIN 81 MG CHEWABLE TABLET PO (10:53)
[2022-03-27] MEDS: METOPROLOL TARTRATE 25 MG TABLET PO ×2 (10:53→20:14)
[2022-03-27] MEDS: PANTOPRAZOLE 40 MG TABLET PO ×2 (10:54→20:14)
--- NOTE | 2022-03-27 12:24 | PM.IMPN ---
Progress Note: A&P Assessment and Plan (1) Syncope: Code(s): R55 - Syncope and collapse Status: Acute Assessment and Plan: Patient developed lightheadedness and brief loss of conscious when in the doctor's office following an episode of emesis. This was related to severe right shoulder/neck pain. She had low BP at this time that persisted when she was in the ED. She had a CTA of the head and neck which showed extensive nonspecific cerebral white matter disease but no acute infarct. She did have moderate stenosis of the proximal and distal right vertebral artery as well as moderate stenosis of the intracranial left ICA. 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 No pathologically enlarged lymph nodes. Probably vasovagal associated with the pain and HoTN. Not on statin due to allergy but she is not clear on this so Lipitor added. Continue to follow on telemetry. Low risk for rupture of aneurysm if <7mm (0.34%/yr). She will need repeat imaging in 6 months then annually to ensure stability. She has been instructed to stop smoking. (2) Non-ST elevation AL (NSTEMI): Code(s): I21.4 - Non-ST elevation (NSTEMI) myocardial infarction Status: Acute Assessment and Plan: Troponin to 6.72. EKG showing NSR with iRBBB and anterior/inferior ST-T wave changes. The right shoulder and neck pain probably musculoskeletal but patient was having vague chest tightness and arm pain which is probably the anginal equivalent. Troponin elevation could be associated with the hypotension and a syncopal episode prior to admission. Patient was on aspirin and Plavix prior to admission. Continue aspirin. Cardiology was consulted. Appreciate their input. Echocardiogram showing EF of 50-55% with grade 1 diastolic dysfunction and no wall motion abnormalities. EKG stress portion is pending but the Lexiscan nuclear medicine images shows small area of mild ischemia involving the apical inferior and mid inferior septal segments of the left ventricle. She also has a small area of severe infarct involving the mid to basal inferior segment of the left ventricle. It was decided not to proceed with heart catheterization given the fact that she has a new onset iron deficiency anemia of unclear etiology. Continue medical management. Control risk factors. She has been educated about the benefits of smoking cessation. (3) Hypotension: Code(s): I95.9 - Hypotension, unspecified Status: Acute Assessment and Plan: Patient has a history of hypertension and was on quinapril and amlodipine at home. She had low blood pressure associated with the pain which could be vasovagal from pain. Consider also hypotension related to inferior ischemia. Blood pressure improved with IV fluids. Blood pressure stable. Metoprolol started and she is toelrating. Continue to monitor. (4) Paroxysmal A-fib: Code(s): I48.0 - Paroxysmal atrial fibrillation Status: Acute Assessment and Plan: Patient developed atrial fibrillation here. TSH normal. Heart rate improved and back in NSR. BP remaining stable on Lopressor. Continue Lopressor. Echo as above. [id number]-Xojt = 7. Start anticoagulation as noted below. (5) Anemia: Code(s): D64.9 - Anemia, unspecified Status: Acute Assessment and Plan: Hemoglobin was normal in August. B12 level low end of normal so will replace. She is on ASA and Plavix. Iron studies noted and consistent with iron deficiency. She is on Naproxen prn so we added PPI treatment. GI consulted. EGD showing nonerosive reflux dz Califon showing polyp x2 s/p resection and internal hemorrhoids No contraindication for anticoagulation. Will start Eliquis. Check SBFT. (6) Tobacco use: Code(s): Z72.0 - Tobacco use Status: Acute Assessment and Plan: Patient was educated about the benefits of smoking cessation (7) Hyperglycemia: Code(
[2022-03-27] MEDS: LACTATED RINGERS 1,000 ML 150 ML IV CONT (12:28)
--- NOTE | 2022-03-27 13:02 | WPDANESEPPF ---
Anes - Initial Pre Proc Eval Procedure: Operation Date: 03/27/22 13:30 Proposed Procedures p Esophagogastroduodenoscopy & Colonoscopy - Timothy Chamberlain MD Date/Time: 03/27/22 13:02 Surgeon: Imelda Rodriguez DO Pre Op Diagnosis: Syncope,Paroxysmal A Fib,Chest Pain Patient Data Age: 86 Gender: F Height: 1.63 m Weight: 53.9 kg Last Vital Signs Temp 97.8 F 03/27/22 12:26 Pulse 86 03/27/22 12:26 Resp 18 03/27/22 12:26 BP 139/76 03/27/22 12:26 Pulse Ox 97 03/27/22 12:26 O2 Del Method Room Air 03/27/22 12:26 Allergies Allergy/AdvReac Type Severity Reaction Status Date / Time hydrochlorothiazide Allergy Unknown unk Verified 03/27/22 12:25 pravastatin Allergy Unknown unk Verified 03/27/22 12:25 tamoxifen Allergy Unknown unk Verified 03/27/22 12:25 Home Medications Medication Instructions Recorded Confirmed Type aspirin 81 mg tablet,delayed 324 mg PO DAILY 02/13/19 03/24/22 History release cholecalciferol (vitamin D3) 50 2,000 unit PO DAILY 02/13/19 03/24/22 History mcg (2,000 unit) tablet potassium 99 mg tablet 200 mg PO DAILY 02/13/19 03/24/22 History ferrous sulfate 325 mg (65 mg 325 mg PO DAILY 08/31/19 03/24/22 History iron) tablet amlodipine 10 mg tablet 10 mg PO DAILY #90 tabs 07/28/21 03/24/22 Rx clopidogrel 75 mg tablet 75 mg PO DAILY #90 tabs 07/28/21 03/24/22 Rx cyclobenzaprine 5 mg tablet 5 mg PO TID #20 tabs 03/11/22 03/24/22 Rx naproxen 375 mg tablet 375 mg PO BID PRN pain #10 tabs 03/11/22 03/24/22 Rx quinapril 40 mg tablet 40 mg PO DAILY 03/24/22 03/24/22 History Laboratory Tests 03/27/22 03/27/22 04:37 04:37 WBC 6.8 K/mm3 K/mm3 (4.5-10.0) RBC 3.12 M/mm3 L M/mm3 (4.2-5.4) Hgb 9.1 g/dL L g/dL (12.0-15.0) Hct 28.3 % L % (37.0-47.0) MCV 90.7 fl fl (80-100) MCH 29.2 pg pg (26-34) MCHC 32.2 g/dl g/dl (32-36) RDW 13.8 % % (11.5-14.5) Plt Count 259 k/mm3 k/mm3 (150-375) MPV 9.0 fl fl (7.4-10.4) Sodium 136 mmol/L L mmol/L (137-145) Potassium 3.4 mmol/L mmol/L (3.4-5.0) Chloride 105 mmol/L mmol/L (98-107) Carbon Dioxide 27 mmol/L mmol/L (22-30) Anion Gap 4 mmol/L L mmol/L (8-16) BUN 7 mg/dL mg/dL (7-17) Creatinine 0.90 mg/dL mg/dL (0.7-1.0) Estim Creat Clear Calc 35 ml/min ml/min Estimated GFR 60 (59 - ) Glucose 99 mg/dL mg/dL (65-110) Calcium 8.3 mg/dL L mg/dL (8.4-10.2) Patient hx anesthesia problems: none Family hx anesthesia problems: none Results Review: All pre-operative results and documents have been reviewed as part of the pre-operative evaluation. 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 Lives alone, one daughter. Surrogate medical decision maker: Esperanza Vargas, daughter. Code status: Full code. Smoking packs per day: 0.75 Smoking cigarettes per day: 15.0 Years smoked: 60 Smoking pack-years: 45.00 Smoking status: Current every day smoker Tobacco type: cigarettes Second hand tobacco smoke exposure: Yes Alcohol intake: never Substance use: clara
[2022-03-27] MEDS: BENZOCAINE (*SP) 60 ML SPRAY CAN (HURRICAINE) 1 SPRAY MUCOUS MEM (13:20)
[2022-03-27] MEDS: ATORVASTATIN 40 MG TABLET PO (15:09)
[2022-03-27] MEDS: CYCLOBENZAPRINE HCL 5 MG TABLET PO ×2 (15:10→18:44)
[2022-03-27] MEDS: CYANOCOBALAMIN 1,000 MCG TABLET 1000 MCG PO (15:10)
[2022-03-27] MEDS: EZETIMIBE 10 MG TABLET PO (15:10)
[2022-03-27] MEDS: ACETAMINOPHEN 500 MG TABLET 1000 MG PO (18:43)
[2022-03-27] MEDS: POTASSIUM CHLORIDE 20 MEQ TABLET 40 MEQ PO (21:41)
[2022-03-27] MEDS: APIXABAN 5 MG TABLET PO (21:41)
[2022-03-28] VITALS (10 sets, daily range): BP systolic 117–146; BP diastolic 40–84; PULSE 63–86; RESP 16–20; TEMP 36.3–36.8; O2SAT 95–100
[2022-03-28 05:13] LABS: Hematocrit 25.6 % (37.0-47.0); Hemoglobin 8.1 g/dL (12.0-15.0); Mean Corpuscular HGB Conc 31.6 g/dl (32-36); Mean Corpuscular Hemoglobin 29.2 pg (26-34); Mean Corpuscular Volume 92.4 fl (80-100); Mean Platelet Volume 9.1 fl (7.4-10.4); Platelet Count Result 237 k/mm3 (150-375); Red Blood Count 2.77 M/mm3 (4.2-5.4); Red Cell Distribution Width 13.7 % (11.5-14.5); White Blood Count 5.3 K/mm3 (4.5-10.0)
[2022-03-28] MEDS: PANTOPRAZOLE 40 MG TABLET PO (08:34)
[2022-03-28] MEDS: EZETIMIBE 10 MG TABLET PO (08:35)
[2022-03-28] MEDS: METOPROLOL TARTRATE 25 MG TABLET PO (08:35)
[2022-03-28] MEDS: ATORVASTATIN 40 MG TABLET PO (08:35)
[2022-03-28] MEDS: CYANOCOBALAMIN 1,000 MCG TABLET 1000 MCG PO (08:35)
[2022-03-28] MEDS: ACETAMINOPHEN 500 MG TABLET 1000 MG PO (08:39)
--- NOTE | 2022-03-28 12:23 | WPDGIPROGNO ---
Progress Note: A&P Assessment and Plan (1) Paroxysmal atrial fibrillation: Code(s): I48.0 - Paroxysmal atrial fibrillation Status: Acute Assessment and Plan: She is being considered for anticoagulation. For our and I discussed this. Although I did take off 2 polyps I think that it would be reasonable to start her on anticoagulation tomorrow. Of course if she has any further bleeding we would need to stop it. Also she has a drop in blood counts we would need to consider further investigation. (2) Anemia: Code(s): D64.9 - Anemia, unspecified Status: Acute Assessment and Plan: Her iron level is low at 35 and saturation is also low. I will schedule her for EGD and colonoscopy to be done tomorrow morning. Explain her that she could have something such as any symptomatic ulcer, colon polyps, AVMs or other issues that could potentially bleed if she is anticoagulated. 03/28/2022 her hemoglobin did drop, from 9.1-8.1, but there is no sign of bleeding. Will need to keep an eye on her blood counts and consider further investigation if counts continue to drop. We could always consider capsule endoscopy if we felt that it would be appropriate after discharge (3) H/O TIA (transient ischemic attack) and stroke: Code(s): Z86.73 - Personal history of transient ischemic attack (TIA), and cerebral infarction without residual deficits Status: Chronic Assessment and Plan: Has been on aspirin and she thinks Plavix for most of the past 20 years. Subjective Date/time seen: 03/28/22 12:23 She is sitting up, eating, and feeling good. She denies any complaints. She has not had any bowel movements. She has not seen any blood. We discussed the results of her endoscopy and colonoscopy. Basically the findings were 2 polyps in the rectum which I removed. That would be the primary source of bleeding if she were to have some while she is anticoagulated. I told her that a doctor for are and I have discussed this and she will start Eliquis tomorrow. She knows she should call if she sees any blood. Review of Systems Review of Systems: All systems reviewed & are unremarkable except as noted in HPI and below Exam Const: General: alert Orientation/consciousness: patient oriented x3 Resp: Auscultation: clear to auscultation bilaterally Cardio: Rhythm: regular rhythm GI: GI Palp: No abdominal tenderness, Yes Soft to palpation and Yes No hepatosplenomegaly present Auscultation: normal bowel sounds Neuro: General: patient oriented x3 Objective Data Vital Signs Vital Signs: Vital Signs - 24 hr 03/27/22 12:26 03/27/22 13:50 03/27/22 14:00 Temperature 36.6 C Pulse Rate 86 74 77 Respiratory Rate 18 20 22 H Blood Pressure 139/76 105/40 L 118/62 Pulse Oximetry 97 97 98 Oxygen Delivery Room Air Room Air Room Air 03/27/22 14:10 03/27/22 14:19 03/27/22 14:20 Temperature 35.9 C L Pulse Rate 78 87 76 Respiratory Rate 21 H 16 Blood Pressure 128/69 135/70 Pulse Oximetry 98 99 Oxygen Delivery Room Air 03/27/22 16:00 03/27/22 16:00 03/27/22 16:00 Temperature 36.6 C Pulse Rate 82 82 81 Respiratory Rate 16 16 Blood Pressure 123/51 L Pulse Oximetry 97 97 Oxygen Delivery Room Air 03/27/22 18:00 03/27/22 20:14 03/27/22 20:00 Temperature Pulse Rate 81 88 Respiratory Rate Blood Pressure 133/55 L Pulse Oximetry Oxygen Delivery 03/27/22 20:00 03/27/22 20:00 03/27/22 20:00 Temperature 36.5 C Pulse Rate 69 Respiratory Rate 16 Blood Pressure 133/55 L 123/68 126/72 Pulse Oximetry 98 Oxygen Delivery 03/28/22 00:00 03/28/22 04:00 03/27/22 20:00 Temperature 36.8 C 36.4 C Pulse Rate 72 63 93 Respiratory Rate 16 16 Blood Pressure 118/58 L 117/40 L Pulse Oximetry 95 97 Oxygen Delivery 03/27/22 22:00 03/28/22 00:00 03/28/22 02:00 Temperature Pulse Rate 75 78 75 Respiratory Rate Blood Pressure P
--- NOTE | 2022-03-28 13:07 | PM.PNCARD ---
Progress Note: A&P Assessment and Plan (1) Paroxysmal atrial fibrillation: Code(s): I48.0 - Paroxysmal atrial fibrillation Status: Acute Plan Patient with paroxysmal atrial fibrillation. Patient has anemia, etiology uncertain thus far. Patient is anticipated to undergo a capsule endoscopy. Anticoagulation is warranted based on patient's current CHADSVASc score. However, due to significant anemia of uncertain etiology, she remains at risk for bleeding. After discussion with the patient and family and with primary team, we will proceed with anticoagulation with apixaban along with PPI with close monitoring of H&H. May hold off on antiplatelet treatment for now to decrease bleeding complications. Patient will be evaluated in the outpatient cardiology clinic soon and will likely be considered for left atrial appendage occlusion for CVA prophylaxis. The plan was discussed with the patient and her family and they are in agreement. Subjective Date/time seen: 03/28/22 13:07 Interval history: Date of service: 03/28/2022 Interval history: I was asked by Dr. Sanabria to re-evaluate the patient for atrial fibrillation and candidacy for anticoagulation. Had AFib during hospitalization, currently in sinus rhythm. She denies any ongoing symptoms of chest pain or shortness of breath, palpitation or dizziness. She recently had significant drop in the hemoglobin, and no source of bleeding has been stable so far. Patient is anticipated to undergo capsule endoscopy. Exam Narrative: PHYSICAL EXAMINATION: GENERAL: Alert, oriented, no acute distress MENTAL STATUS: affect appropriate to mood EYES: Extraocular movements intact, no pallor EARS: External ears appear normal, hearing grossly normal NOSE: Normal and patent, no discharge MOUTH: Mucous membranes moist, tongue normal NECK: Supple, no JVD CHEST: Good respiratory effort, clear to auscultation HEART: Normal rate, regular rhythm at present ABDOMEN: Soft, nontender NEUROLOGICAL: Alert, oriented, normal speech, no gross motor deficits MUSCULOSKELETAL: Degenerative arthritic changes, no amputation EXTREMITIES: No pedal edema, no clubbing, no cyanosis SKIN: no rash on the exposed area, no cyanosis PSYCHIATRIC: Normal mood, appropriate affect Objective Data Vital Signs Vital Signs: Vital Signs - 24 hr 03/27/22 13:50 03/27/22 14:00 03/27/22 14:10 Temperature Pulse Rate 74 77 78 Respiratory Rate 20 22 H 21 H Blood Pressure 105/40 L 118/62 128/69 Pulse Oximetry 97 98 98 Oxygen Delivery Room Air Room Air Room Air 03/27/22 14:19 03/27/22 14:20 03/27/22 16:00 Temperature 35.9 C L 36.6 C Pulse Rate 87 76 82 Respiratory Rate 16 16 Blood Pressure 135/70 123/51 L Pulse Oximetry 99 97 Oxygen Delivery 03/27/22 16:00 03/27/22 16:00 03/27/22 18:00 Temperature Pulse Rate 82 81 81 Respiratory Rate 16 Blood Pressure Pulse Oximetry 97 Oxygen Delivery Room Air 03/27/22 20:14 03/27/22 20:00 03/27/22 20:00 Temperature 36.5 C Pulse Rate 88 69 Respiratory Rate 16 Blood Pressure 133/55 L 133/55 L Pulse Oximetry 98 Oxygen Delivery 03/27/22 20:00 03/27/22 20:00 03/28/22 00:00 Temperature 36.8 C Pulse Rate 72 Respiratory Rate 16 Blood Pressure 123/68 126/72 118/58 L Pulse Oximetry 95 Oxygen Delivery 03/28/22 04:00 03/27/22 20:00 03/27/22 22:00 Temperature 36.4 C Pulse Rate 63 93 75 Respiratory Rate 16 Blood Pressure 117/40 L Pulse Oximetry 97 Oxygen Delivery 03/28/22 00:00 03/28/22 02:00 03/28/22 04:00 Temperature Pulse Rate 78 75 66 Respiratory Rate Blood Pressure Pulse Oximetry Oxygen Delivery 03/28/22 06:00 03/28/22 04:00 03/28/22 08:35 Temperature Pulse Rate 80 86 Respiratory Rate Blood Pressure Pulse Oximetry Oxygen Delivery Room Air 03/28/22 08:43 03/28/22 08:43 03/28/22 08:00 Temperature 36.3 C L Pulse Rate 86 84 Res
--- NOTE | 2022-03-28 13:09 | PM.DS ---
DS: Admitting Diagnosis Discharge Date 03/28/22 Admitting Diagnosis Syncopal episode DS: Discharge Diagnosis Discharge Diagnosis (1) Syncope: Code(s): R55 - Syncope and collapse Status: Acute (2) Non-ST elevation [place] (NSTEMI): Code(s): I21.4 - Non-ST elevation (NSTEMI) myocardial infarction Status: Acute (3) Hypotension: Code(s): I95.9 - Hypotension, unspecified Status: Acute (4) Paroxysmal A-fib: Code(s): I48.0 - Paroxysmal atrial fibrillation Status: Acute (5) Anemia: Code(s): D64.9 - Anemia, unspecified Status: Acute (6) Tobacco use: Code(s): Z72.0 - Tobacco use Status: Acute (7) Hyperglycemia: Code(s): R73.9 - Hyperglycemia, unspecified Status: Acute (8) Neck pain on right side: Code(s): M54.2 - Cervicalgia Status: Acute (9) Pain in right shoulder: Code(s): M25.511 - Pain in right shoulder Status: Acute (10) Aneurysm, carotid artery, internal: Code(s): I67.1 - Cerebral aneurysm, nonruptured Status: Acute DS: Summary Hospital Course Reason for hospitalization: 86yo female here for right shoulder/neck and syncope. Please see H&P for details. Hospital Course: Patient developed lightheadedness and brief loss of conscious when in the doctor's office following an episode of emesis.? This was related to severe right shoulder/neck pain.? She had low BP at this time that persisted when she was in the ED. She had a CTA of the head and neck which showed extensive nonspecific cerebral white matter disease but no acute infarct.? She did have moderate stenosis of the proximal and distal right vertebral artery as well as moderate stenosis of the intracranial left ICA.? 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 No pathologically enlarged lymph nodes. Probably vasovagal associated with the pain and HoTN. Not on statin due to allergy but she is not clear on this so Lipitor added. Low risk for rupture of aneurysm if <7mm (0.34%/yr). She was instructed to stop smoking.? Troponin to 6.72. EKG showing NSR with iRBBB and anterior/inferior ST-T wave changes.? The right shoulder and neck pain probably musculoskeletal but patient was having vague chest tightness and arm pain which is probably the anginal equivalent.? Troponin elevation could be associated with the hypotension and a syncopal episode prior to admission.? Patient was on aspirin and Plavix prior to admission.? Cardiology was consulted.? Appreciate their input.? Echocardiogram showing EF of 50-55% with grade 1 diastolic dysfunction and no wall motion abnormalities. Lexiscan nuclear medicine images shows small area of mild ischemia involving the apical inferior and mid inferior septal segments of the left ventricle.? She also has a small area of severe infarct involving the mid to basal inferior segment of the left ventricle.? It was decided not to proceed with heart catheterization given the fact that she has a new onset iron deficiency anemia of unclear etiology.? Patient has a history of hypertension and was on quinapril and amlodipine at home.? She had low blood pressure associated with the pain which could be vasovagal from pain.? Consider also hypotension related to inferior ischemia.? Blood pressure improved with IV fluids.? Blood pressure stable. Metoprolol started and she tolerated this well. Patient developed atrial fibrillation here.?TSH normal. Heart rate improved and back in NSR. BP remaining stable on Lopressor. [id number] = 7. She has anemia with a normal hemoglobin in August. B12 level low end of normal so this was replaced. She was on ASA and Plavix. Iron studies noted and consistent with iron deficiency. She was on Naproxen prn so this was stopped. GI consulted. EGD showing nonerosive reflux dz Vivian showing polyp x2 s/p resection and internal hemorrhoids. Discussed with Cardiology. Plan for having patient o
== END 2022-03-28 15:03 | disposition home or self-care (01) | DRG 281 ==
LOC: ANHED 14:54 → ANHIMU 17:51
PROVIDERS: Internal Medicine Gastroenterology; Physician Assistant; Admitting Provider Student in an Organized Health Care Education/Training Program; Emergency Provider Emergency Medicine; PCP Family Medicine; Visit Provider Internal Medicine
PROC: 0DJ08ZZ Inspection of Upper Intestinal Tract, Via Natural or Artificial Opening Endoscopic (ICD-10-PCS; CPT 43235; principal; 2022-03-27 13:30)
DX: I21.4 Non-ST elevation (NSTEMI) myocardial infarction (principal); E87.1 Hypo-osmolality and hyponatremia; R55 Syncope and collapse; I95.9 Hypotension, unspecified; K21.9 Gastro-esophageal reflux disease without esophagitis; K57.30 Diverticulosis of large intestine without perforation or abscess without bleeding; K64.8 Other hemorrhoids; I48.0 Paroxysmal atrial fibrillation; D12.8 Benign neoplasm of rectum; R73.9 Hyperglycemia, unspecified; M54.2 Cervicalgia; M25.511 Pain in right shoulder; I72.0 Aneurysm of carotid artery; I10 Essential (primary) hypertension; I65.29 Occlusion and stenosis of unspecified carotid artery; L40.9 Psoriasis, unspecified; D50.9 Iron deficiency anemia, unspecified; E78.5 Hyperlipidemia, unspecified; Z20.822 Contact with and (suspected) exposure to COVID-19; F17.210 Nicotine dependence, cigarettes, uncomplicated; Z86.73 Personal history of transient ischemic attack (TIA), and cerebral infarction without residual deficits; Z85.3 Personal history of malignant neoplasm of breast; Z79.82 Long term (current) use of aspirin; Z87.442 Personal history of urinary calculi; Z98.42 Cataract extraction status, left eye; Z98.41 Cataract extraction status, right eye; Z96.1 Presence of intraocular lens; Z90.710 Acquired absence of both cervix and uterus
CPT/HCPCS: 36415; 70496; 70498; 78452; 80048; 80053; 81001; 82607; 82728; 82746; 82948; 83540; 83550; 83735; 84443; 84484; 85025; 85027; 85610; 85730; 87637; 88305; 93005; 93017; 93306; 96360; 96361; 99285; A9270; A9502; J0131; J2704; J2785; J3420; J7030; J7120; Q9967

== ENCOUNTER 2022-06-30 16:02 | Emergency (ER) | payer MEDICARE, BC, SELFPAY ==
--- NOTE | ~2022-06-30 | CT_ITS ---
EXAMINATION: CT lumbar spine wo con DATE: 06/30/2022 16:44 INDICATION: Lumbar compression fracture. Mid back pain. TECHNIQUE: Computed tomography (CT) of the lumbar spine was performed without intravenous contrast. A utomated exposure control and iterative reconstruction technique were employed. The dose-length produ ct was 600.66 mGy-cm. COMPARISON: CT abdomen and pelvis 06/14/2017 FINDINGS: There is a horseshoe kidney. There is a 3.0 cm stone in left kidney. There is calcified ath erosclerosis of the aorta and many of the other arteries. There is 11 degrees levoscoliosis of lumbar spine. There is 14 degrees dextroscoliosis of thoracolumbar spine. There is mild chronic anterior we dging of T11 vertebral body. There is mild chronic height loss of L2 vertebral body. There is severel y decreased disc height from T12-L1 through L4-L5 and mildly decreased disc height at L5-S1. Osseous central spinal canal is developmentally small in lumbar spine. The following disc levels are specific ally discussed: L1-L2: The disc is bulging. There is mild bilateral facet joint osteoarthritis. There is mild bilater al neural foraminal stenosis. There is mild central canal stenosis. L2-L3: The disc is bulging. There is severe right and moderate left facet joint osteoarthritis. There is moderate right and mild left neural foraminal stenosis. There is moderate central canal stenosis. L3-L4: The disc is bulging. There is severe bilateral facet joint osteoarthritis. There is moderate r ight and mild left neural foraminal stenosis. There is mild central canal stenosis. L4-L5: The disc is bulging. There is severe bilateral facet joint osteoarthritis. There is mild bilat eral neural foraminal stenosis. There is severe central canal stenosis. L5-S1: The disc is bulging. There is severe bilateral facet joint osteoarthritis. There is moderate b ilateral neural foraminal stenosis. There is severe central canal stenosis. IMPRESSION: 1. No acute fracture. 2. Severe lumbar spondylosis. 3. Scoliosis. Reviewed, dictated and finalized at location A.
[2022-06-30 16:04] VITALS: BP 169/83; PULSE 89; RESP 13; TEMP 36.7; O2SAT 98
--- NOTE | 2022-06-30 17:18 | ED.BACK ---
HPI - Back Pain/Injury General Chief Complaint: Back Pain/Injury Stated Complaint: back pain Time Seen by Provider: 06/30/22 16:11 Source: patient Mode of arrival: ambulatory Limitations: no limitations History of Present Illness HPI Narrative: 86-year-old here with complaints of back pain for last several weeks. Patient states that she has seen a chiropractor this afternoon was told she may be having fracture lumbar vertebra. She states that she fell 2 weeks ago. She denies any bladder or bowel incontinence. MD elicited complaint: back pain Pertinent past history: prior back pain and arthritis Onset (ago): week(s) Timing: constant Severity: moderate Quality: dull Location: lumbar spine and thoracic spine Radiation: none Exacerbating factors: none Relieving factors: none Associated symptoms: denies other symptoms Related Data Home Medications Medication Instructions Recorded Confirmed cholecalciferol (vitamin D3) 50 2,000 unit PO DAILY 02/13/19 06/04/22 mcg (2,000 unit) tablet potassium 99 mg tablet 200 mg PO DAILY 02/13/19 06/04/22 ferrous sulfate 325 mg (65 mg 325 mg PO DAILY 08/31/19 06/04/22 iron) tablet Allergies Allergy/AdvReac Type Severity Reaction Status Date / Time hydrochlorothiazide Allergy Unknown unk Verified 06/04/22 10:26 pravastatin Allergy Unknown unk Verified 06/04/22 10:26 tamoxifen Allergy Unknown unk Verified 06/04/22 10:26 Review of Systems Review of Systems: All systems reviewed & are unremarkable except as noted in HPI and below Constitutional: Constitutional: Reports no additional constitutional complaints Eyes: Eyes: Reports no additional eye complaints ENT: Reports system reviewed and no additional complaints, except as documented Cardiovascular: Cardiovascular: Reports no additional cardiovascular complaints Respiratory: Respiratory: Reports no additional respiratory complaints Gastrointestinal: Gastrointestinal: Reports no additional gastrointestinal complaints Musculoskeletal: Musculoskeletal: Reports as per HPI PMF Past Medical History Medical History Diverticulosis Hyperlipidemia Hypertension Internal hemorrhoids Kidney stones Left breast cancer with T3 tumor, >5 cm in greatest dimension Paroxysmal atrial fibrillation Psoriasis Tobacco use Transient ischemic attack Surgical History Surgical History History of cataract extraction with lens replacement History of cystoscopy History of hysterectomy History of lumpectomy of left breast Family History Family History Father Family history of coronary artery disease Other Alcohol abuse Social History Social History Social History: , 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 Lives alone, one daughter. Surrogate medical decision maker: Esperanza Vargas, daughter. Code status: Full code. Smoking packs per day: 0.75 Smoking cigarettes per day: 15.0 Years smoked: 60 Smoking pack-years: 45.00 Smoking status: Current every day smoker Tobacco type: cigarettes Second hand tobacco smoke exposure: Yes Alcohol intake: never Substance use: never Lack of Transportation: No Lack of Food: Never True Current Housing: I Have Housing Concerned About Future Housing: No Difficulty Paying Gas/Electric Bills: No Difficulty Paying for Meds: No Currently Unemployed: No Education: Decline to Answer Difficulty w/ Childcare or Family Care: No Living arrangements: with family Occupation/Education: retired Spiritual care concerns: No Exam Narrative: GENERAL: Well-appearing, well-nourished, and in no acute distress. HEAD: Normocephalic, atraumatic. EYES: PERRLA and EOMI. ENT: Mucous membranes moist. NECK: Supple. CHEST: Clear to auscultation. No respiratory distres
== END 2022-06-30 17:32 | disposition home or self-care (01) ==
PROVIDERS: Emergency Provider Family Medicine; PCP Family Medicine
DX: I48.0 Paroxysmal atrial fibrillation (principal); E78.5 Hyperlipidemia, unspecified; I10 Essential (primary) hypertension; Z86.73 Personal history of transient ischemic attack (TIA), and cerebral infarction without residual deficits; Z85.3 Personal history of malignant neoplasm of breast; Z87.442 Personal history of urinary calculi; Z98.49 Cataract extraction status, unspecified eye; Z96.1 Presence of intraocular lens; Z90.710 Acquired absence of both cervix and uterus
CPT/HCPCS: 72131; 99284

== ENCOUNTER 2022-11-09 09:04 | Outpatient (CLI) | payer MEDICARE, BC, SELFPAY ==
--- NOTE | ~2022-11-09 | DEXA_ITS ---
Bone Density Report Name: NEMO SANCHEZ Age: 86 Sex: Female Ethnicity: White Date of : 1935 Indication: postmenopausal; screening for osteoporosis; height loss; cancer; hysterectomy; Referring Provider: IGNACIO ARRIAGA Study: Bone densitometry was performed. Exam Date: November 09, 2022 Accession number: [id number] Bone Density: Region BMD T-score Z-score Classification AP Spine(L3, L4) 0.807 -2.7 0.3 Osteoporosis Femoral Neck (Left) 0.445 -3.6 -1.1 Osteoporosis Total Hip (Left) 0.561 -3.1 -0.8 Osteoporosis Femoral Neck (Right) 0.467 -3.4 -0.9 Osteoporosis Total Hip (Right) 0.525 -3.4 -1.1 Osteoporosis Total Hip Mean 0.543 -3.3 -1.0 Osteoporosis World Health Organization criteria for BMD impression classify patients as: Normal (T-score at or above -1.0), Osteopenia (T-score between -1.0 and -2.5), or Osteoporosis (T-score at or below -2.5). 10-year Fracture Risk: FRAX not reported because: Some T-score for Spine Total or Hip Total or Femoral Neck at or below -2.5 Clinical Information Provided by Patient: Smokes Has used the following medications: Vitamin D Has the following medical conditions: Cancer, Hysterectomy Patient maximum height was 64.5 Menopause Age: 39 No regular weight bearing exercise Does not regularly consume dairy products Drinks caffeinated beverages Onset of menses at age 16 Number of children 1 Impression: The patient has osteoporosis, based on the Left Femoral Neck T-score. The patient has risk factors, including: smoking. Discussion: INCREASED RISK OF FRACTURE. BONE DENSITY IS UNDESIRABLY LOW AT ONE OR MORE SKELETAL SITES, CONSISTENT WITH POSTMENOPAUSAL OSTEOPOROSIS. This patient's lowest T-score meets the World Health Organization's (WHO) criteria for osteoporosis at one or more sites (T-score -2.5 or below). In untreated patients, the risk of osteoporotic fracture increases approximately two-fold for each 1.0 SD decrease in T-score. Low bone density is not the only risk factor for fracture; also consider factors such as patient's age, frailty or poor health, risk of falling, risk of injury, previous osteoporotic fracture, family history of osteoporosis, cigarette smoking, low body weight, etc. Not everyone with low bone mineral density has osteoporosis; osteomalacia and other metabolic bone disorders should also be considered. Patients who have osteoporosis should be evaluated for specific diseases and conditions (secondary causes) that may cause or contribute to bone loss. The [place] [employer]ocrinologists (AACE) and National Osteoporosis Foundation (NOF) recommend pharmacologic intervention for all postmenopausal women whose T-score is in this range. The patient should follow a healthful lifestyle (good nutrition with adequate calcium and vitamin D
== END 2022-11-09 09:05 | disposition home or self-care (01) ==
LOC: ANHIMG 09:06
PROVIDERS: PCP Family Medicine; Visit Provider Family Medicine
DX: Z78.0 Asymptomatic menopausal state (principal); M81.0 Age-related osteoporosis without current pathological fracture
CPT/HCPCS: 77080

== ENCOUNTER 2023-03-08 21:53 | Emergency (ER) | payer MEDICARE, BC, SELFPAY ==
--- NOTE | ~2023-03-08 | CT_ITS ---
Clinical Indication: Back pain, abdominal pain CT Scan of the Chest, Abdomen, and Pelvis with Contrast: Technique: Contiguous sections were acquired throughout the chest, abdomen, and pelvis after intraven ous administration of 100 cc of Omnipaque 350. Dose reduction technique was used on this scan by leonid estrella automated exposure control and iterative reconstruction technique. The dose-length product (DL P) was 357.03 mGy-cm. Comparison: 06/14/2017 Findings: There is no evidence of any significant mediastinal, hilar or axillary lymphadenopathy. The mediastin al soft tissues appear normal. No pulmonary embolus. No aortic aneurysm or dissection. There are athe rosclerotic calcifications of the aorta. There is no evidence of pleural or pericardial effusion. 3 mm right basilar pulmonary nodule noted (axial image 95). There is a 1.9 cm left upper lobe pulmona ry nodule (axial image 37). 4 mm left lower lobe pulmonary nodule noted (axial image 80). There is mi ld emphysema. The liver, spleen, pancreas, and right adrenal gland are within normal limits. Common bile duct is ex tensive dilated to 17 mm, probably related to prior cholecystectomy, and stable from prior exam. 2.3 cm left adrenal nodule is stable from prior exam. Horseshoe kidney noted, with large staghorn type ca lculus of the left renal moiety, which is unchanged as compared to prior lumbar spine CT dated 023. There are atherosclerotic calcifications of the aorta. No lymphadenopathy. No bowel obstruction or bowel wall thickening. There is no evidence to suggest acute appendicitis. Urinary bladder is unremarkable. No pelvic mass seen. No ascites. Mild compression deformity of T9 no debo. Impression: 1.9 cm left upper lobe pulmonary nodule. This is suspicious for neoplasm until proven otherwise. Tiss ue sampling recommended to establish histologic diagnosis. Additional subcentimeter pulmonary nodules, as detailed above, most likely benign. 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 Stable 2.3 cm left adrenal nodule dating back to 2018, therefore consistent with benign adenoma. Mild emphysema. Mild T9 compression fracture. Reviewed, dictated and finalized at location M. BOTOMY DIRECTOR Impression: 1.9 cm left upper lobe pulmonary nodule. This is suspicious for neoplasm until proven otherwise. Tissue sampling recommended to establish histologic diagnosis . Additional subcentimeter pulmonary nodules, as detailed above, most likely eugenia gn. 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 Stable 2.3 cm left adrenal nodule dating back to 2018, therefore consistent wit h benign adenoma. Mild emphysema. Mild T9 compression fracture.
[2023-03-08 21:54] VITALS: BP 207/96; PULSE 73; RESP 18; TEMP 36.4; O2SAT 97
[2023-03-08 22:02] VITALS: BP 164/80
[2023-03-08 22:25] VITALS: BP 177/94; PULSE 66; RESP 19; O2SAT 99
--- NOTE | 2023-03-08 23:13 | ECG_ITS ---
Measurements Intervals [place] Rate: 69 P: 57 [place]: 160 QRS: 53 QRSD: 118 T: -9 QT: 417 QTc: 448 Interpretive Statements SINUS RHYTHM LEFT VENTRICULAR HYPERTROPHY AND ST-T CHANGE [VOLTAGE CRITERIA PLUS ST/T ABNORMALITY] COMPARED TO ECG 03/25/2022 14:29:49 LEFT VENTRICULAR HYPERTROPHY NOW PRESENT Electronically Signed On 03-09-2023 13:31:41 [employer] by Mouna Abreu M.D.
[2023-03-08 23:47] LABS: Basophils Absolute Auto 0.1 K/mm3 (0.0-0.1); Basophils Percent Auto 0.8 % (0.2-1.2); Eosinophils Absolute Auto 0.1 K/mm3 (0-0.3); Hematocrit 40.3 % (37.0-47.0); Hemoglobin 12.6 g/dL (12.0-15.0); Immature Granulocyte Absolute 0.03 K/mm3 (0.00-0.031); Immature Granulocyte Percent A 0.3 % (0-0.5); Lymphocytes Absolute Auto 1.35 K/mm3 (0.9-3.2); Lymphocytes Percent Auto 13.9 % (18.3-44.2); Mean Corpuscular HGB Conc 31.3 g/dl (32-36); Mean Corpuscular Volume 86.5 fl (80-100); Mean Platelet Volume 9.3 fl (7.4-10.4); Monocytes Absolute Auto 0.5 K/mm3 (0.1-0.6); Monocytes Percent Auto 5.4 % (2.6-8.5); Neutrophils Absolute Auto 7.6 K/mm3 (1.3-6.7); Neutrophils Percent Auto 78.6 % (45.5-73.1); Platelet Count Result 262 k/mm3 (150-375); Red Blood Count 4.66 M/mm3 (4.2-5.4); Red Cell Distribution Width 13.9 % (11.5-14.5); White Blood Count 9.7 K/mm3 (4.5-10.0)
[2023-03-08 23:58] LABS: Alanine Aminotransferase 14 U/L (6-35); Albumin Level 3.5 g/dL (3.5-5.1); Alkaline Phosphatase 76 U/L (38-126); Anion Gap 5 mmol/L (8-16); Aspartate Amino Transferase 21 U/L (14-36); Bilirubin,Total 1.3 mg/dL (0.2-1.3); Blood Urea Nitrogen 11 mg/dL (7-17); Calcium 9.2 mg/dL (8.4-10.2); Carbon Dioxide 27 mmol/L (22-30); Chloride 102 mmol/L (98-107); Estimated CRCL calculation 44 ml/min; Estimated Glomerular Filt Rate > 60; Glucose 106 mg/dL (65-110); INR 1.1; Potassium 4.3 mmol/L (3.4-5.0); Prothrombin Time 14.3 Seconds (11.1-14.7); Sodium 134 mmol/L (137-145)
[2023-03-08 23:59] LABS: Lactic Acid Reflex 1.1 mmol/L (0.7-2.0); Partial Thromboplastin Time 33.9 SECONDS (22.3-36.8)
[2023-03-09 00:10] LABS: NT Pro B Type Natriuretic Pept 2870 pg/mL (19.9-100); Troponin I < 0.012 ng/mL (0.000-0.034)
[2023-03-09 00:24] LABS: Influenza A QL RT-PCR Negative (Negative); Influenza B QL RT-PCR Negative (Negative); RSV RNA, RT-PCR Negative (Negative); SARS-CoV-2 RNA PCR Negative (Negative)
--- NOTE | 2023-03-09 02:17 | ED.GENADULT ---
HPI - General Adult General Chief complaint: Back Pain/Injury Stated complaint: upper back pain Time Seen by Provider: 03/08/23 23:09 History of Present Illness HPI narrative: patient 87-year-old female who presents to emergency department with chief complaint of back pain. Patient reports she has been having pain in her upper back between her shoulder blades for the last several weeks that is on and off. The patient states that the pain is coming goes and reports this moment the pain is actually not there the patient triage had an elevated blood pressure and unequal blood pressures in both arms the patient states pain is currently resolved reports that what is there it is an aching type pain. Related Data Home Medications Medication Instructions Recorded Confirmed cholecalciferol (vitamin D3) 50 2,000 unit PO DAILY 02/13/19 02/17/23 mcg (2,000 unit) tablet potassium 99 mg tablet 200 mg PO DAILY 02/13/19 02/17/23 ferrous sulfate 325 mg (65 mg 325 mg PO DAILY 08/31/19 02/17/23 iron) tablet Allergies Allergy/AdvReac Type Severity Reaction Status Date / Time hydrochlorothiazide Allergy Unknown unk Verified 03/08/23 22:25 pravastatin Allergy Unknown unk Verified 03/08/23 22:25 tamoxifen Allergy Unknown unk Verified 03/08/23 22:25 Review of Systems Review of Systems: A 10 system review of systems was completed on the patient and is negative except for what is stated in the HPI. Nursing and ancillary documentation was reviewed. [facility] Past Medical History Medical History Diverticulosis Hyperlipidemia Hypertension Internal hemorrhoids Kidney stones Left breast cancer with T3 tumor, >5 cm in greatest dimension Osteoporosis Paroxysmal atrial fibrillation Psoriasis Tobacco use Transient ischemic attack Surgical History Surgical History History of cataract extraction with lens replacement History of cystoscopy History of hysterectomy History of lumpectomy of left breast Family History Family History Father Family history of coronary artery disease Other Alcohol abuse Social History Social History Social History: , 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 Surrogate medical decision maker: Esperanza Vargas, daughter. Code status: Full code. Smoking packs per day: 0.75 Smoking cigarettes per day: 15.0 Years smoked: 60 Smoking pack-years: 45.00 Smoking status: Current every day smoker Tobacco type: cigarettes Second hand tobacco smoke exposure: Yes Alcohol intake: never Substance use: never Lack of Transportation: No Lack of Food: Never True Current Housing: I Have Housing Concerned About Future Housing: No Difficulty Paying Gas/Electric Bills: No Difficulty Paying for Meds: No Currently Unemployed: No Education: Decline to Answer Difficulty w/ Childcare or Family Care: No Living arrangements: with family Occupation/Education: retired Spiritual care concerns: No Exam Narrative: GENERAL: Well-appearing, well-nourished, and in no acute distress. HEAD: Normocephalic, atraumatic. EYES: PERRLA and EOMI. ENT: Nares clear, no rhinorrhea or epistaxis. Mucous membranes moist. NECK: Supple. CHEST: Clear to auscultation. No respiratory distress. HEART: Regular rate and rhythm. No murmur heard. Normal peripheral pulses. ABDOMEN: Soft, nontender, nondistended, normal active bowel sounds. EXTREMITIES: Normal range of motion. No edema. SKIN: Warm, dry, no rash. NEURO: No focal deficits. Alert and oriented x3. PSYCH: Normal mood and affect. Course Vital Signs Vital signs: Vital Signs Temperature 36.4 C 03/08/23 21:54 Pulse Rate 73 03/08/23 21:54 Respiratory Rate 18 12
[2023-03-09 03:56] VITALS: BP 179/105; PULSE 80; RESP 17; O2SAT 97
[2023-03-09 04:36] LABS: Appearance Urine Clear (Clear); Bacteria Urine None Seen /hpf; Bilirubin Urine Negative (Negative); Blood Urine 3+ (Negative); Color Urine Yellow (Yellow); Glucose Urine UA Negative (Negative); Ketones Urine Negative (Negative); Leukocyte Esterase Ur Negative LEU/UL (Negative); Nitrate Urine Negative (Negative); Non Pathogenic Casts 0-2; Protein Urine Negative (Negative); RBC Urine >100 /hpf (0-2); Squamous Epithelial Cell Urine Few /hpf (Few); Urobilinogen Urine 0.2 mg/dL (<2.0); WBC Urine 0-5 /hpf
[2023-03-09 04:39] LABS: Add Urine Microscopic? YES
--- NOTE | 2023-03-09 10:26 | ECG_ITS ---
Measurements Intervals [place] Rate: 74 P: -12 [place]: 144 QRS: 56 QRSD: 111 T: -5 QT: 423 QTc: 472 Interpretive Statements SINUS RHYTHM MODERATE INTRAVENTRICULAR CONDUCTION DELAY [110+ ms QRS DURATION] NONSPECIFIC ST & T-WAVE ABNORMALITY COMPARED TO ECG 03/08/2023 22:12:33 NO SIGNIFICANT CHANGES Electronically Signed On 03-09-2023 13:32:39 RN PATIENT SERVICES by Mouna Abreu M.D.
== END 2023-03-09 05:10 | disposition home or self-care (01) ==
PROVIDERS: Emergency Provider Emergency Medicine; PCP Family Medicine
DX: I71.20 Thoracic aortic aneurysm, without rupture, unspecified (principal); Z11.52 Encounter for screening for COVID-19; E78.5 Hyperlipidemia, unspecified; I48.0 Paroxysmal atrial fibrillation; I10 Essential (primary) hypertension; M81.0 Age-related osteoporosis without current pathological fracture; L40.9 Psoriasis, unspecified; F17.210 Nicotine dependence, cigarettes, uncomplicated; Z85.3 Personal history of malignant neoplasm of breast; Z86.73 Personal history of transient ischemic attack (TIA), and cerebral infarction without residual deficits; Z87.442 Personal history of urinary calculi; Z98.49 Cataract extraction status, unspecified eye; Z96.1 Presence of intraocular lens; Z90.710 Acquired absence of both cervix and uterus; I51.7 Cardiomegaly; I45.9 Conduction disorder, unspecified; R94.31 Abnormal electrocardiogram [ECG] [EKG]
CPT/HCPCS: 36415; 71275; 74174; 80053; 81001; 83605; 83880; 84484; 85025; 85610; 85730; 87637; 93005; 99284; Q9967

== ENCOUNTER 2023-03-17 04:50 | Emergency (ER) | payer MEDICARE, BC, SELFPAY ==
[2023-03-17 04:51] VITALS: BP 159/70; PULSE 74; RESP 14; TEMP 36.6; O2SAT 98
[2023-03-17 07:09] VITALS: BP 158/68; PULSE 54; RESP 16; TEMP 36.4; O2SAT 99
[2023-03-17 07:30] VITALS: BP 134/64; PULSE 80; RESP 16; O2SAT 100
--- NOTE | 2023-03-17 08:04 | ED.BACK ---
HPI - Back Pain/Injury General Chief Complaint: Back Pain/Injury Stated Complaint: upper back pain Time Seen by Provider: 03/17/23 07:00 History of Present Illness HPI Narrative: Patient is an 87-year-old female who presents ER with back pain. Intermittent. It improves a tramadol at times. It does not lateralize to 1 side. No known injury. No pain with physical movement. She was seen in the ER couple weeks ago. She had a CT scan that showed chronic compression fracture deformities. She has no numbness or tingling. She has taken her last pill of tramadol. She has not yet followed up with her PCP. Related Data Home Medications Medication Instructions Recorded Confirmed cholecalciferol (vitamin D3) 50 2,000 unit PO DAILY 02/13/19 02/17/23 mcg (2,000 unit) tablet potassium 99 mg tablet 200 mg PO DAILY 02/13/19 02/17/23 ferrous sulfate 325 mg (65 mg 325 mg PO DAILY 08/31/19 02/17/23 iron) tablet Allergies Allergy/AdvReac Type Severity Reaction Status Date / Time hydrochlorothiazide Allergy Unknown unk Verified 03/08/23 22:25 pravastatin Allergy Unknown unk Verified 03/08/23 22:25 tamoxifen Allergy Unknown unk Verified 03/08/23 22:25 Review of Systems Constitutional: Constitutional: Reports no additional constitutional complaints Respiratory: Respiratory: Denies cough, Denies dyspnea and Denies wheezing Musculoskeletal: Musculoskeletal: Reports back pain, Denies arthralgias and Denies joint swelling Neurologic: Reports system reviewed and no additional complaints, except as documented PMFSH Past Medical History Medical History Diverticulosis Hyperlipidemia Hypertension Internal hemorrhoids Kidney stones Left breast cancer with T3 tumor, >5 cm in greatest dimension Osteoporosis Paroxysmal atrial fibrillation Psoriasis Tobacco use Transient ischemic attack Surgical History Surgical History History of cataract extraction with lens replacement History of cystoscopy History of hysterectomy History of lumpectomy of left breast Family History Family History Father Family history of coronary artery disease Other Alcohol abuse Social History Social History Social History: , 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 Lives alone, one daughter. Surrogate medical decision maker: Esperanza Vargas, daughter. Code status: Full code. Smoking packs per day: 0.75 Smoking cigarettes per day: 15.0 Years smoked: 60 Smoking pack-years: 45.00 Smoking status: Current every day smoker Tobacco type: cigarettes Second hand tobacco smoke exposure: Yes Alcohol intake: never Substance use: never Lack of Transportation: No Lack of Food: Never True Current Housing: I Have Housing Concerned About Future Housing: No Difficulty Paying Gas/Electric Bills: No Difficulty Paying for Meds: No Currently Unemployed: No Education: Decline to Answer Difficulty w/ Childcare or Family Care: No Living arrangements: with family Occupation/Education: retired Spiritual care concerns: No Exam Narrative: GENERAL: Well-appearing, well-nourished, and in no acute distress. HEAD: Normocephalic, atraumatic. CHEST: Clear to auscultation. No respiratory distress. HEART: Regular rate and rhythm. Normal peripheral pulses. Back: No reproducible midline or paraspinal muscle tenderness to the T/L-spine. EXTREMITIES: Normal range of motion. No edema. SKIN: Warm, dry, no rash. NEURO: Alert and oriented x3. PSYCH: Normal mood and affect. Course Course Emergency Course: Reviewed patient's previous imaging. Discussed that she has a 1.9 cm mass in the left lung that needs to be biopsied or needs a PET scan. Her and family verbalized understanding th
[2023-03-17 08:22] VITALS: TEMP 36.6
== END 2023-03-17 08:24 | disposition home or self-care (01) ==
PROVIDERS: Emergency Provider Emergency Medicine; PCP Family Medicine
DX: R91.8 Other nonspecific abnormal finding of lung field (principal); M54.9 Dorsalgia, unspecified; E78.5 Hyperlipidemia, unspecified; I48.0 Paroxysmal atrial fibrillation; F17.210 Nicotine dependence, cigarettes, uncomplicated; Z85.3 Personal history of malignant neoplasm of breast; Z86.73 Personal history of transient ischemic attack (TIA), and cerebral infarction without residual deficits
CPT/HCPCS: 99283